=== PATIENT | male | born 1940 | race Caucasian/White ===

== ENCOUNTER 2023-02-05 15:08 | Outpatient (RCR) | payer MEDICARE, OTHER, SELFPAY | END 2023-02-05 23:59 | disposition home or self-care (01) | LOC: RST 15:08 | PROVIDERS: ATTENDING PHYSICIAN Psychiatry & Neurology Neurology; FAMILY PHYSICIAN Family Medicine | DX: R41.3 Other amnesia (principal); R47.01 Aphasia | CPT/HCPCS: 92507 ==

== ENCOUNTER 2023-03-19 15:44 | Outpatient (RCR) | payer MEDICARE, OTHER, SELFPAY | END 2023-03-19 23:59 | disposition home or self-care (01) | LOC: RST 15:44 | PROVIDERS: ATTENDING PHYSICIAN Psychiatry & Neurology Neurology; FAMILY PHYSICIAN Family Medicine | DX: R41.3 Other amnesia (principal); R47.01 Aphasia; R41.89 Other symptoms and signs involving cognitive functions and awareness | CPT/HCPCS: 92507 ==

== ENCOUNTER 2023-03-31 20:20 | Emergency (ER) | payer MEDICARE, OTHER, SELFPAY ==
[2023-03-31 20:26] VITALS: BP 149/70
[2023-03-31 20:35] LABS: Glucose - Point of Care 111 mg/dl (70-99)
--- NOTE | 2023-03-31 20:49 | ED.CVA ---
History of Present Illness
General
Chief Complaint: CVA/TIA Symptoms
Source: patient
Time Seen by Provider: 03/31/23 20:43
Onset of Stroke Symptoms
Onset of symptoms known: No
Time pt last seen normal is known: Yes
Date last time pt seen normal: 03/31/23
Time last time pt seen normal: 20:52
Travel History
Have you had any contact with someone who has COVID-19?: No
Do you have any symptoms of coronavirus? Fever > 100 degrees, chills, cough, shortness of breath, sore throat, loss of taste or smell, muscle aches, or headache?: No
History of Present Illness
History of Present Illness:
82-year-old male brought to the emergency room by his for evaluation of confusion and being off balance. 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 Patient also has a right facial droop
secondary to Mohs surgery. states that the patient had spent the afternoon outside where he did smoke a couple cigars and had a glass of bourbon. His heard him go up the steps and into his office. It sounded like he was walking in a
different way than normal but when she went to check on him in the office he was asleep. She let him sleep and eventually woke him for dinner. He seemed confused which she attributed to just waking up from his nap. However when she heard him
again coming down the steps it sounded quite abnormal. She went to check on him and felt he was unbalanced and she need to help him down the steps. He was confused and did not know how he had gotten up the stairs and said he felt away he is never
felt before. did not notice any focal weakness of the extremities.
Past History
Past History
ED Past Medical History: Arrthythmia (afib), CAD, CHF, HTN, Hypercholesterolemia, Other (RLS) and Other (R DVT, Left atrial thrombus Sep 2018)
ED Past Surgical History: Orthopedic; Negative Cardiac
Social History
Tobacco: Non-smoker
Alcohol: Occasional
Drug: None
Personal:
Living: with family
Employment: Retired
Family History
Family History: Other (Noncontributory)
Phy Exam
Physical Exam
Physical Exam:
General: Awake, Alert, Oriented X3. No acute distress.
Vitals: unremarkable
Head: Atraumatic
Eyes: Pupils equal, EOMI
Throat: Airway intact, no exudates
Neck: Trachea midline
Lungs: Clear and equal b/l
Heart: Regular rate, no murmurs
Abd: Soft, Nontender, No pulsatile mass
Neuro: Expressive aphasia (baseline) right peripheral facial droop, muscle strength equal bilaterally, cerebellar exam normal
Skin: Warm, dry, no rash
Extremities: pulses equal b/l, no edema
Course
Orders/Labs/Results
Orders:
Orders
03/31/23 20:41
Electrocardiogram (*1) Urgent
Reason for Study: Other
Other Reason for Exam: Possible Stroke
Bedside Glucose- Treatment ONCE
Cardiac Monitoring- Treatment ONCE
EKG- Treatment ONCE
IV Insert/Care/Rem.- Treatment PRN
Vital Signs As Directed
Frequency: Other
Weight As Directed
Frequency: Once
Comment: ZERO STRETCHER SCALE FOR ACCURATE WEIGHT
O2 Therapy [RESP] Urgent
Titrate/Wean O2 to maintain O2 sat greater than (%): 93
Special Instructions: MAINTAIN CONTINUOUS O2 SATS > OR = 93%
03/31/23 20:42
Alcohol Urgent
Comprehensive Metabolic Panel Urgent
PTT Urgent
Prothrombin Time Urgent
03/31/23 20:43
Add On- LAB Urgent
Tests Added?: alcohol
Complete Blood Count/With Diff Urgent
Troponin I Urgent
03/31/23 20:46
CT Head W/o Cont STROKE ALERT Urgent
Reason For Exam: confusion, slurred speech
Abnormal Lab Results
03/31/23 03/31/23 03/31/23
20:33 20:42 20:43
RBC 4.50 L 10^6/uL
(4.70-6.10)
MCV 96.4 H fL
(80.0-94.0)
MCH 33.3 H pg
(27.0-31.0)
Absolute Monos (auto) 0.9 H 10^3/uL
(0.1-0.6)
Monocytes % 9.7 H %
(1.7-9.3)
Chloride 108 H mmol/L
(98-107)
Carbon Dioxide 20 L mmol/L
(22-30)
BUN 29 H mg/dl
(9-20)
Creatinine 1.9 H mg/dL
(0.7-1.3)
Glucose 107 H mg/dl
(70-99)
POC Glucose 111 H mg/dl
(70-99)
03/31/23 20:43
03/31/23 20:42
Vital Signs
Initial and Last Documented VS:
Initial Vital Signs
Pulse Resp BP Pulse Ox
61 18 149/70 99
03/31/23 20:26 03/31/23 20:26 03/31/23 20:26 03/31/23 20:26
Last Documented Vital Signs
Temp Pulse Resp BP Pulse Ox
95.3 F L 73 17 167/86 98
03/31/23 20:44 03/31/23 22:00 03/31/23 22:00 03/31/23 22:00 03/31/23 21:45
MDM/Problems Addressed
Differential Diagnosis Includes:
CVA, metabolic encephalopathy, electrolyte abnormality
MDM/Problems Addressed:
Presentation not consistent with acute ischemic event as there is no focality. Rather patient just more off balance and confused than baseline. Patient did endorse some alcohol consumption this evening. CT of the head shows no acute
abnormalities. Labs are unremarkable save for a EtOH level of 157. Given patient's age and comorbidities I think this completely explains his presentation. Patient observed until he was able to ambulate without assistance. Patient stable for
discharge home.
Chronic conditions affecting care: Other (Aphasia)
*Radiology
Radiology exam reviewed: radiology read reviewed
*Pulse Oximetry
Patient hypoxic: no
*EKG
Interpreted by ED Provider?: Yes
Interpretation: abnormal
Heart Rate: 61
Rate: normal
Rhythm: sinus
Independence: normal axis
Interval: normal interval
QRS Pattern: normal QRS
Ischemia: no ischemia
*Critical Care Note
Total Time (30-74mins, 75-104mins- exclusive of procedures): Not Applicable
Patient Management
Social determinants of health affecting care: Strong social support
ED Attending Note
-
Portions of this chart may have been created with voice recognition software.� Occasional wrong word or��sound alike� substitutions may have occurred due to the inherent limitations of voice recognition software.
Discharge Plan
Departure
Patient Disposition: Home (Routine Discharge)
Date of Disposition: 03/31/23
Time of Disposition: 22:05
Patient with high blood pressure during this ER visit?: Yes
Condition: Good
Discharge Problem:
Alcohol intoxication
Instructions: Alcohol Intoxication ED
Prescriptions:
No Action
aspirin 81 MG tablet,delayed release (DR/EC)
81 mg PO DAILY
atorvastatin 20 MG tablet
20 mg PO QPM Qty: 30 0RF
fluticasone propionate 1 SPRAY spray,suspension
1 spray intranasal DAILY Qty: 1 0RF
metoprolol succinate 50 mg tablet extended release 24 hr
50 mg PO DAILY
spironolactone 25 mg tablet
12.5 mg PO DAILY
escitalopram oxalate 5 mg tablet
5 mg PO DAILY
Eliquis 2.5 mg tablet
2.5 mg PO BID
dapagliflozin propanediol [Farxiga] 10 mg tablet
10 mg PO DAILY
Referrals:
Dayron Saunders MD [Family Provider] -
Interventions
Interventions:
*Risk Screen - Suicide Last Done: 03/31/23 20:26
*General Assessment Last Done: 03/31/23 20:26
*Neglect/Abuse Screening Last Done: 03/31/23 20:26
ED- Fall Risk Assessment Last Done: 03/31/23 20:58
*ED COVID-19 Vaccine History Last Done: 03/31/23 20:26
*Nursing Disposition Last Done: 03/31/23 22:25
ED- Pulmonary Assessment Last Done: 03/31/23 20:58
ED- Neurological Assessment Last Done: 03/31/23 20:57
ED- Cardiac Assessment Last Done: 03/31/23 20:58
ED Swallowing Screen Last Done: 03/31/23 21:30
Discharge Date and Time
Discharge Date/Time: 03/31/23 22:25
[2023-03-31 20:50] LABS: % Eosinophils 2.2 % (0-6); % Immature Granulocytes 0.4 % (0-0.5); % Lymphocytes 27.2 % (20.5-51.1); % Monocytes 9.7 % (1.7-9.3); % Neutrophils 59.5 % (42.2-75.2); Absolute Basophils 0.1 10^3/uL (0-0.2); Absolute Eosinophils 0.2 10^3/uL (0-0.7); Absolute Lymphocytes 2.6 10^3/uL (1.2-3.4); Absolute Monocytes 0.9 10^3/uL (0.1-0.6); Absolute Neutrophils 5.6 10^3/uL (1.4-6.5); Hematocrit 43.4 % (39.0-52.0); Mean Corp Hgb Conc. 34.6 g/dL (33.0-37.0); Mean Corpuscular Hgb 33.3 pg (27.0-31.0); Mean Corpuscular Volume 96.4 fL (80.0-94.0); Mean Platelet Volume 9.4 fL (7.4-10.4); Nucleated Red Blood Cells % 0 % (-); Platelet Count 268 10^3/uL (130-400); Red Cell Dist. Width 13.1 % (11.5-14.5); White Blood Cell Count 9.4 10^3/uL (4.8-10.8)
[2023-03-31 21:00] VITALS: BP 145/70
[2023-03-31 21:01] LABS: INR 1.08; PT 13.9 Sec (11.4-14.6)
[2023-03-31 21:02] LABS: APTT 29.6 Sec (23.4-35.0)
[2023-03-31 21:04] LABS: ALT (SGPT) 11 U/L (0-50); AST (SGOT) 29 U/L (17-59); Albumin 4.1 g/dl (3.5-5.0); Alkaline Phosphatase 68 U/L (38-126); Blood Urea Nitrogen 29 mg/dl (9-20); Calcium 9.1 mg/dl (8.4-10.2); Carbon Dioxide 20 mmol/L (22-30); Chloride 108 mmol/L (98-107); Glucose 107 mg/dl (70-99); Potassium 4.7 mmol/L (3.5-5.1); Sodium 142 mmol/L (135-145); Total Bilirubin 0.6 mg/dl (0.2-1.3); Total Protein 6.6 g/dl (6.3-8.2)
[2023-03-31 21:05] LABS: Alcohol 157 mg/dl
[2023-03-31 21:14] LABS: Troponin I 0.031 ng/ml
[2023-03-31 21:15] VITALS: BP 122/68
[2023-03-31 21:30] VITALS: BP 143/71
[2023-03-31 21:45] VITALS: BP 143/74
[2023-03-31 22:00] VITALS: BP 167/86
== END 2023-03-31 22:25 | disposition home or self-care (01) ==
LOC: EMR 20:20
PROVIDERS: EMERGENCY PHYSICIAN Emergency Medicine; FAMILY PHYSICIAN Family Medicine
DX: F10.129 Alcohol abuse with intoxication, unspecified (principal); I48.91 Unspecified atrial fibrillation; I25.10 Atherosclerotic heart disease of native coronary artery without angina pectoris; I11.0 Hypertensive heart disease with heart failure; I50.9 Heart failure, unspecified; E78.00 Pure hypercholesterolemia, unspecified; G25.81 Restless legs syndrome; R47.01 Aphasia
CPT/HCPCS: 99284; 70450; 80053; 82077; 82962; 84484; 85025; 85610; 85730; 93005

== ENCOUNTER 2023-04-14 12:14 | Outpatient (RCR) | payer MEDICARE, OTHER, SELFPAY | END 2023-04-14 23:59 | disposition home or self-care (01) | LOC: RST 12:14 | PROVIDERS: ATTENDING PHYSICIAN Psychiatry & Neurology Neurology; FAMILY PHYSICIAN Family Medicine | DX: R41.3 Other amnesia (principal); R47.01 Aphasia; G31.84 Mild cognitive impairment of uncertain or unknown etiology | CPT/HCPCS: 92507 ==

== ENCOUNTER 2023-04-17 08:02 | Outpatient (RCR) | payer MEDICARE, OTHER, SELFPAY | END 2023-04-17 23:59 | disposition home or self-care (01) | LOC: RPT 08:02 | PROVIDERS: ATTENDING PHYSICIAN Orthopaedic Surgery Orthopaedic Surgery of the Spine; FAMILY PHYSICIAN Family Medicine | DX: M48.062 Spinal stenosis, lumbar region with neurogenic claudication (principal); M41.86 Other forms of scoliosis, lumbar region; Z73.6 Limitation of activities due to disability; R26.2 Difficulty in walking, not elsewhere classified; M62.81 Muscle weakness (generalized) | CPT/HCPCS: 97110; 97162 ==

== ENCOUNTER 2023-05-09 06:35 | Outpatient (RCR) | payer MEDICARE, OTHER, SELFPAY | END 2023-05-09 23:59 | disposition home or self-care (01) | LOC: RPT 06:35 | PROVIDERS: ATTENDING PHYSICIAN Orthopaedic Surgery Orthopaedic Surgery of the Spine; FAMILY PHYSICIAN Family Medicine | DX: M48.062 Spinal stenosis, lumbar region with neurogenic claudication (principal); M41.86 Other forms of scoliosis, lumbar region; Z73.6 Limitation of activities due to disability; R26.2 Difficulty in walking, not elsewhere classified; M62.81 Muscle weakness (generalized) | CPT/HCPCS: 97010; 97110 ==

== ENCOUNTER → 2023-07-16 19:28 | Outpatient (REF) | payer MEDICARE, OTHER, SELFPAY | LOC: MRI 19:28 | PROVIDERS: ATTENDING PHYSICIAN Orthopaedic Surgery; FAMILY PHYSICIAN Family Medicine | DX: M54.50 Low back pain, unspecified (principal) | CPT/HCPCS: 72148 ==

== ENCOUNTER → 2023-07-17 13:58 | Outpatient (REF) | payer MEDICARE, OTHER, SELFPAY ==
[2023-07-17 14:46] LABS: % Basophils 0.8 % (0-2); % Eosinophils 2.3 % (0-6); % Immature Granulocytes 0.6 % (0-0.5); % Lymphocytes 21.5 % (20.5-51.1); % Monocytes 9.1 % (1.7-9.3); % Neutrophils 65.7 % (42.2-75.2); Absolute Basophils 0.1 10^3/uL (0-0.2); Absolute Eosinophils 0.3 10^3/uL (0-0.7); Absolute Immature Granulocytes 0.1 10^3/uL (0-0.05); Absolute Lymphocytes 2.3 10^3/uL (1.2-3.4); Absolute Neutrophils 7.1 10^3/uL (1.4-6.5); Hemoglobin 15.9 g/dL (13.0-18.0); Mean Corp Hgb Conc. 33.8 g/dL (33.0-37.0); Mean Corpuscular Hgb 33.9 pg (27.0-31.0); Mean Corpuscular Volume 100.2 fL (80.0-94.0); Mean Platelet Volume 9.6 fL (7.4-10.4); Nucleated Red Blood Cells % 0 % (-); Platelet Count 312 10^3/uL (130-400); Red Blood Cell Count 4.69 10^6/uL (4.70-6.10); Red Cell Dist. Width 13.2 % (11.5-14.5); White Blood Cell Count 10.7 10^3/uL (4.8-10.8)
[2023-07-17 15:09] LABS: Erythrocyte Sed Rate 4 mm/hour (0-20)
[2023-07-17 15:15] LABS: NT-proBNP 5640 pg/ml
[2023-07-17 15:18] LABS: ALT (SGPT) 29 U/L (0-50); AST (SGOT) 40 U/L (17-59); Alkaline Phosphatase 66 U/L (38-126); Blood Urea Nitrogen 31 mg/dl (9-20); Calcium 9.2 mg/dl (8.4-10.2); Carbon Dioxide 22 mmol/L (22-30); Chloride 110 mmol/L (98-107); Glucose 89 mg/dl (70-99); Potassium 5.1 mmol/L (3.5-5.1); Sodium 141 mmol/L (135-145); Total Bilirubin 0.9 mg/dl (0.2-1.3); Total Protein 6.4 g/dl (6.3-8.2)
[2023-07-17 15:19] LABS: C-Reactive Protein < 5.00 mg/L (0.0-10.00)
[2023-07-17 15:36] LABS: Free T4 1.14 ng/dl (0.78-2.19); Vitamin D, 25-OH*** 52.3 ng/mL (30-80)
[2023-07-17 15:49] LABS: TSH 2.58 uIU/ml (0.47-4.68)
[2023-07-19 21:33] LABS: CTx 774 pg/mL (118-776)
[2023-07-20 08:44] LABS: ANA, IgG Reflex to HEp-2 None Detected (None Detected)
== END ==
LOC: REG 13:58
PROVIDERS: ATTENDING PHYSICIAN Internal Medicine Rheumatology; FAMILY PHYSICIAN Family Medicine
DX: M15.0 Primary generalized (osteo)arthritis (principal); M54.16 Radiculopathy, lumbar region; M81.0 Age-related osteoporosis without current pathological fracture; Z00.00 Encounter for general adult medical examination without abnormal findings; N18.32 Chronic kidney disease, stage 3b; I12.9 Hypertensive chronic kidney disease with stage 1 through stage 4 chronic kidney disease, or unspecified chronic kidney disease; I50.9 Heart failure, unspecified
CPT/HCPCS: 36415; 80053; 82306; 82523; 83880; 84439; 84443; 85025; 85652; 86038; 86140

== ENCOUNTER 2023-09-04 08:36 | Outpatient (RCR) | payer MEDICARE, OTHER, SELFPAY | END 2023-09-04 23:59 | disposition home or self-care (01) | LOC: RST 08:36 | PROVIDERS: ATTENDING PHYSICIAN Psychiatry & Neurology Neurology; FAMILY PHYSICIAN Family Medicine | DX: R47.01 Aphasia (principal) | CPT/HCPCS: 92507; 92523 ==

== ENCOUNTER 2023-09-18 09:10 | Outpatient (RCR) | payer MEDICARE, OTHER, SELFPAY | END 2023-09-18 23:59 | disposition home or self-care (01) | LOC: RST 09:10 | PROVIDERS: ATTENDING PHYSICIAN Psychiatry & Neurology Neurology; FAMILY PHYSICIAN Family Medicine | DX: R47.01 Aphasia (principal) | CPT/HCPCS: 92507 ==

== ENCOUNTER 2023-09-23 09:01 | Emergency (ER) | payer MEDICARE, OTHER, SELFPAY ==
[2023-09-23 09:06] VITALS: BP 159/99
[2023-09-23 09:10] VITALS: BMI 29.9
--- NOTE | 2023-09-23 09:23 | ED.GENMED ---
History of Present Illness
General
Chief Complaint: Musculo-Skeletal Complaint
Exam Limitations: other (memory issues )
Time Seen by Provider: 09/23/23 09:12
History of Present Illness
History of Present Illness:
Patient is an 83-year-old male brought to the ER by EMS for evaluation of back pain. Patient presents awake alert he is aware that he has a hospital but is not able to tell me which hospital. He does tell me that he is here for back pain but is
poor historian he does have a history of memory issues and cognitive impairment. present reports patient has a history of chronic back issues. He has been evaluated by Dr. Jorge Bello in the past . He also has seen Dr. Dye and they are
talking about injections but he has not had injections yet. He was in physical therapy. This morning reports patient was walking upstairs in the hallway and could not walk. He was hunched over leaning on the wall
He does take Motrin and Tylenol normally for his pain. He did a lo of walking yesterday .
Past History
Past History
ED Past Medical History: Arrthythmia (afib), CAD, CHF, HTN, Hypercholesterolemia, Other (RLS) and Other (R DVT, Left atrial thrombus Sep 2018)
ED Past Surgical History: Orthopedic; Negative Cardiac
Social History
Tobacco: Non-smoker
Alcohol: Occasional
Drug: None
Personal:
Living: with family
Employment: Retired
Family History
Family History: Other (Noncontributory)
Review of Systems
Review of Systems
Allergies reviewed?: Yes
Other source history: family
All Other Systems: ROS reviewed and negative except as documented in HPI and ROS
Constitutional: Reports no symptoms; Denies fever or fatigue
Respiratory: Reports no symptoms
Cardiac: Reports no symptoms
ABD/GI: Reports no symptoms
: Denies dysuria or incontinence
Musculoskeletal: Reports back pain (low back pain )
Skin: Reports no symptoms
Neurological: Reports no symptoms and other (Denies any lower extremity weakness)
Psychiatric: Reports no symptoms
Phy Exam
General Physical Exam
General Presentation: well appearing
General age: appears stated age
General Skin: warm and dry
General Habitus: elderly
General Mental: usual mental status (Able to answer some questions poor historian, history of cognitive impairment at baseline as per )
General Hydration: appears well hydrated
Cardiovascular Exam
Cardiovascular Exam: occasionally irregular
Pulmonary Exam
Pulmonary Exam: lungs clear and no respiratory distress
Neurological Exam
Neurological Exam: alert and other (Intact sensation bilateral lower extremities negative straight leg raise normal dorsiflexion plantarflexion)
Musculoskeletal Exam
Musculoskeletal Exam: other (Normal inspection to tubular splitting machine tender throughout the paralumbar muscles negative straight leg raise)
Skin Exam
Skin Exam: normal color and warm/dry
Psychiatric Exam
Psychiatric Exam: normal mood/affect
Course
Orders/Labs/Results
Orders:
Orders
09/23/23 10:17
Acetaminophen 1000MG/100Ml [Ofirmev] 1,000 mg in 100 ml IV ONCE
Acetaminophen IV Indication:: ED Narcotic Naive Pt-ONCE
Vital Signs
Initial and Last Documented VS:
Initial Vital Signs
BP
159/99
09/23/23 09:06
Last Documented Vital Signs
Temp Pulse Resp BP Pulse Ox
98.1 F 95 14 146/85 96
09/23/23 09:10 09/23/23 14:15 09/23/23 14:15 09/23/23 14:00 09/23/23 14:15
MDM/Problems Addressed
Differential Diagnosis Includes:
Not limited to chronic back pain muscle strain.
MDM/Problems Addressed:
MRI of lumbar spine reviewed from July 17, 2023 shows very severe discogenic degenerative disease very severe central canal stenosis at L3-L4 severe central canal stenosis at L2-L3.
Patient is an 83-year-old male with chronic back pain presents to the ER for exacerbation of chronic back pain today. Patient reports pain in the lower back no radiation no bowel or bladder patient was given IV Tylenol and monitored here. He is on
blood thinners and with history of cognitive issues and cognitive impairment I did not want to give narcotic a muscle relaxer. He did have some good results with IV Ofirmev and feels like to go home. Patient as per has an appointment with .
Hardik tomorrow at 11 am.
pt was able to ambulate here.
*Critical Care Note
Total Time (30-74mins, 75-104mins- exclusive of procedures): Not Applicable
ED Attending Note
-
Portions of this chart may have been created with voice recognition software.� Occasional wrong word or��sound alike� substitutions may have occurred due to the inherent limitations of voice recognition software.
Discharge Plan
Departure
Patient Disposition: Home (Routine Discharge)
Date of Disposition: 09/23/23
Time of Disposition: 14:48
Patient with high blood pressure during this ER visit?: Yes
Condition: Fair
Covid-19: Not Applicable
Discharge Problem:
Low back pain
Instructions: Low Back Pain (DC), BLOOD PRESSURE
Prescriptions:
No Action
aspirin 81 MG tablet,delayed release (DR/EC)
81 mg PO DAILY
atorvastatin 20 MG tablet
20 mg PO QPM Qty: 30 0RF
fluticasone propionate 1 SPRAY spray,suspension
1 spray intranasal DAILY Qty: 1 0RF
metoprolol succinate 50 mg tablet extended release 24 hr
50 mg PO DAILY
spironolactone 25 mg tablet
12.5 mg PO DAILY
escitalopram oxalate 5 mg tablet
5 mg PO DAILY
Eliquis 2.5 mg tablet
2.5 mg PO BID
dapagliflozin propanediol [Farxiga] 10 mg tablet
10 mg PO DAILY
Referrals:
Dayron Saunders MD [Family Provider] -
Farzad Dye MD [Active] -
Activity Restrictions/Additional Instructions:
Patient may take Tylenol every 4-6 hours as needed. Follow-up with back specialist tomorrow return if any worsening of symptoms.
Interventions
Interventions:
*Risk Screen - Suicide Last Done: 09/23/23 09:11
*General Assessment Last Done: 09/23/23 09:10
*Neglect/Abuse Screening Last Done: 09/23/23 09:11
ED- Fall Risk Assessment Last Done: 09/23/23 14:57
*ED COVID-19 Vaccine History Last Done: 09/23/23 09:10
*Nursing Disposition Last Done: 09/23/23 14:57
ED-Musculoskeletal Assessment Last Done: 09/23/23 09:11
Discharge Date and Time
Discharge Date/Time: 09/23/23 15:08
Print Language: [place]
[2023-09-23 10:00] VITALS: BP 142/88
[2023-09-23] MEDS: OFIRMEV 100 IV (10:24)
[2023-09-23 11:00] VITALS: BP 136/88
[2023-09-23 12:00] VITALS: BP 127/74
[2023-09-23 13:00] VITALS: BP 145/104
[2023-09-23 14:00] VITALS: BP 146/85
== END 2023-09-23 15:08 | disposition home or self-care (01) ==
LOC: EMR 09:01
PROVIDERS: EMERGENCY PHYSICIAN Emergency Medicine; FAMILY PHYSICIAN Family Medicine
DX: M54.50 Low back pain, unspecified (principal); I48.91 Unspecified atrial fibrillation; I25.10 Atherosclerotic heart disease of native coronary artery without angina pectoris; I11.0 Hypertensive heart disease with heart failure; I50.9 Heart failure, unspecified; E78.00 Pure hypercholesterolemia, unspecified; G25.81 Restless legs syndrome; Z79.01 Long term (current) use of anticoagulants
CPT/HCPCS: 99282

== ENCOUNTER 2023-10-23 08:24 | Outpatient (RCR) | payer MEDICARE, OTHER, SELFPAY | END 2023-10-23 23:59 | disposition home or self-care (01) | LOC: RST 08:24 | PROVIDERS: ATTENDING PHYSICIAN Psychiatry & Neurology Neurology; FAMILY PHYSICIAN Family Medicine | DX: R47.01 Aphasia (principal); R41.89 Other symptoms and signs involving cognitive functions and awareness | CPT/HCPCS: 92507 ==

== ENCOUNTER → 2023-11-07 15:19 | Outpatient (REF) | payer MEDICARE, OTHER, SELFPAY ==
[2023-11-07 16:06] LABS: ALT (SGPT) 14 U/L (0-50); AST (SGOT) 26 U/L (17-59); Albumin 4.1 g/dl (3.5-5.0); Alkaline Phosphatase 68 U/L (38-126); Blood Urea Nitrogen 36 mg/dl (9-20); Carbon Dioxide 21 mmol/L (22-30); Chloride 109 mmol/L (98-107); Glucose 91 mg/dl (70-99); Sodium 144 mmol/L (135-145); Total Bilirubin 0.9 mg/dl (0.2-1.3); Total Protein 6.3 g/dl (6.3-8.2); eGFR 29.17
[2023-11-08 11:15] LABS: Intact PTH 156.8 pg/ml (13.6-85.8)
== END ==
LOC: REG 15:19
PROVIDERS: ATTENDING PHYSICIAN Family Medicine
DX: I50.30 Unspecified diastolic (congestive) heart failure (principal); N18.9 Chronic kidney disease, unspecified; N18.32 Chronic kidney disease, stage 3b
CPT/HCPCS: 36415; 80053; 83970

== ENCOUNTER 2023-12-11 11:30 | Outpatient (RCR) | payer MEDICARE, OTHER, SELFPAY | END 2023-12-11 23:59 | disposition home or self-care (01) | LOC: RST 11:30 | PROVIDERS: ATTENDING PHYSICIAN Psychiatry & Neurology Neurology; FAMILY PHYSICIAN Family Medicine | DX: R47.01 Aphasia (principal) | CPT/HCPCS: 92507 ==

== ENCOUNTER 2024-01-08 15:10 | Outpatient (RCR) | payer MEDICARE, OTHER, SELFPAY | END 2024-01-08 23:59 | disposition home or self-care (01) | LOC: RST 15:10 | PROVIDERS: ATTENDING PHYSICIAN Psychiatry & Neurology Neurology; FAMILY PHYSICIAN Family Medicine | DX: R47.01 Aphasia (principal) | CPT/HCPCS: 92507 ==

== ENCOUNTER → 2024-01-13 16:09 | Outpatient (REF) | payer MEDICARE, OTHER, SELFPAY | LOC: RCS 16:09 | PROVIDERS: ATTENDING PHYSICIAN Internal Medicine Cardiovascular Disease; FAMILY PHYSICIAN Family Medicine | DX: I25.10 Atherosclerotic heart disease of native coronary artery without angina pectoris (principal); I48.19 Other persistent atrial fibrillation; I10 Essential (primary) hypertension | CPT/HCPCS: 93306 ==

== ENCOUNTER 2024-01-29 06:56 | Day surgery (SDC) | payer MEDICARE, OTHER, SELFPAY ==
[2024-01-26 13:39] VITALS: BMI 30.9
== END 2024-01-29 10:10 | disposition home or self-care (01) ==
LOC: CATH 06:56
PROVIDERS: ATTENDING PHYSICIAN Internal Medicine Cardiovascular Disease; FAMILY PHYSICIAN Family Medicine; OTHER PHYSICIAN Internal Medicine Cardiovascular Disease
DX: I48.19 Other persistent atrial fibrillation (principal); R07.89 Other chest pain; R06.02 Shortness of breath; I13.0 Hypertensive heart and chronic kidney disease with heart failure and stage 1 through stage 4 chronic kidney disease, or unspecified chronic kidney disease; N18.32 Chronic kidney disease, stage 3b; E78.5 Hyperlipidemia, unspecified; I25.10 Atherosclerotic heart disease of native coronary artery without angina pectoris; Z95.5 Presence of coronary angioplasty implant and graft; I50.9 Heart failure, unspecified; I51.3 Intracardiac thrombosis, not elsewhere classified; G47.33 Obstructive sleep apnea (adult) (pediatric); G25.81 Restless legs syndrome; G25.0 Essential tremor; Z85.828 Personal history of other malignant neoplasm of skin; G47.00 Insomnia, unspecified; F17.290 Nicotine dependence, other tobacco product, uncomplicated; Z79.01 Long term (current) use of anticoagulants; Z79.84 Long term (current) use of oral hypoglycemic drugs
CPT/HCPCS: 93312; 93320; 93325; 92960; 93005

== ENCOUNTER 2024-02-10 13:05 | Outpatient (RCR) | payer MEDICARE, OTHER, SELFPAY | END 2024-02-10 23:59 | disposition home or self-care (01) | LOC: RST 13:05 | PROVIDERS: ATTENDING PHYSICIAN Psychiatry & Neurology Neurology; FAMILY PHYSICIAN Family Medicine | DX: R47.01 Aphasia (principal) | CPT/HCPCS: 92507 ==

== ENCOUNTER → 2024-03-02 15:48 | Outpatient (REF) | payer MEDICARE, OTHER, SELFPAY ==
[2024-03-02 17:16] LABS: % Basophils 0.6 % (0-2); % Eosinophils 1.4 % (0-6); % Immature Granulocytes 0.3 % (0-0.5); % Lymphocytes 18.7 % (20.5-51.1); % Monocytes 8.7 % (1.7-9.3); % Neutrophils 70.3 % (42.2-75.2); Absolute Basophils 0.1 10^3/uL (0-0.2); Absolute Eosinophils 0.2 10^3/uL (0-0.7); Absolute Monocytes 0.9 10^3/uL (0.1-0.6); Absolute Neutrophils 7.4 10^3/uL (1.4-6.5); Hematocrit 42.1 % (39.0-52.0); Hemoglobin 13.8 g/dL (13.0-18.0); Mean Corp Hgb Conc. 32.8 g/dL (33.0-37.0); Mean Corpuscular Hgb 32.3 pg (27.0-31.0); Mean Corpuscular Volume 98.6 fL (80.0-94.0); Mean Platelet Volume 9.4 fL (7.4-10.4); Nucleated Red Blood Cells % 0 % (-); Platelet Count 262 10^3/uL (130-400); Red Blood Cell Count 4.27 10^6/uL (4.70-6.10); Red Cell Dist. Width 12.9 % (11.5-14.5); White Blood Cell Count 10.5 10^3/uL (4.8-10.8)
[2024-03-02 17:42] LABS: ALT (SGPT) < 10 U/L (0-50); AST (SGOT) 22 U/L (17-59); Albumin 3.8 g/dl (3.5-5.0); Alkaline Phosphatase 63 U/L (38-126); Blood Urea Nitrogen 31 mg/dl (9-20); Calcium 8.8 mg/dl (8.4-10.2); Carbon Dioxide 24 mmol/L (22-30); Chloride 109 mmol/L (98-107); Glucose 154 mg/dl (70-99); Potassium 4.8 mmol/L (3.5-5.1); Sodium 141 mmol/L (135-145); Total Bilirubin 0.7 mg/dl (0.2-1.3); Total Protein 6.2 g/dl (6.3-8.2); eGFR 32.71
== END ==
LOC: REG 15:48
PROVIDERS: ATTENDING PHYSICIAN Internal Medicine Cardiovascular Disease; FAMILY PHYSICIAN Family Medicine
DX: I25.10 Atherosclerotic heart disease of native coronary artery without angina pectoris (principal); I48.0 Paroxysmal atrial fibrillation; I42.8 Other cardiomyopathies; I10 Essential (primary) hypertension; I48.19 Other persistent atrial fibrillation; I35.0 Nonrheumatic aortic (valve) stenosis; I48.91 Unspecified atrial fibrillation; I50.9 Heart failure, unspecified
CPT/HCPCS: 36415; 80053; 85025

== ENCOUNTER 2024-03-05 09:01 | Day surgery (SDC) | payer MEDICARE, OTHER, SELFPAY ==
[2024-03-05] VITALS (10 sets, daily range): BP systolic 108–151; BP diastolic 68–92; BMI 27.6
[2024-03-05] MEDS: NSS 293 ML IV (10:05)
[2024-03-05] MEDS: NSS 1000 IV (13:57)
--- NOTE | 2024-03-05 18:08 | ITS.CL.PN ---
[facility] - Procedure Note
Procedure
Procedure Note:
CARDIAC CATHETERIZATION REPORT
Date of Procedure: 03/05/2024
Referring: Dr. Yasemin Torres MD
Indication: positive cardiac stress test, new cardiomyopathy
PROCEDURE(S)
1. left heart catheterization
2. coronary angiography
3. extremity angio, unilateral (right radial artery)
ACCESS: 6F right radial artery (closure: radial band)
CATHETERS
1. 6F JR4
2. 6F JL3.5
MODERATE SEDATION: 33 minutes of moderate sedation was utilized. An independent medical malpractice paralegal was present to assist with and help manage the patient's level of consciousness and physiologic status.
ULTRASOUND GUIDED VASCULAR ACCESS (right radial artery): Ultrasound was utilized for vascular access. The vessel was visualized under ultrasound and noted to be patent. An image of the vessel was stored permanently in the patient's medical record.
Under direct ultrasound guidance, vascular access was obtained using a modified Seldinger technique and a 6 Mongolian sheath was placed.
HEMODYNAMIC DATA
LV 114/10 (EDP 12) mmHg
AO 112/70 (mean 89) mmHg
CORONARY ANGIOGRAPHY
Dominance: right
LM: short, normal
LAD: Large vessel giving rise to 3 medium caliber diagonal branches. There is mild nonobstructive disease.
LCx: Large vessel giving rise to a medium caliber OM1, large caliber OM2, and large caliber LPL branch. There is mild nonobstructive disease.
RCA: Large caliber vessel giving rise to a medium caliber RPDA and a medium caliber RPL branch. There is disease in the small very distal branches of the RPDA and RPL but otherwise nonobstructive coronary artery disease.
RADIATION: dose 333 mGy; DAP 20.9 Gy*cm2; fluoroscopy time 5.7 min
CONCLUSIONS
1. no significant coronary artery disease in a right dominant system.
2. normal LV filling pressure and no aortic stenosis
RECOMMENDATIONS
1. expectant management after cardiac catheterization via right radial approach
2. aggressive primary prevention of coronary artery disease
3. workup and management of nonischemic cardiomyopathy
Copy to: Dr. Yasemin Torres MD (oenologist); Dr. Dayron Saunders MD (PCP)
Signed: Matthew Garcia MD, PhD
== END 2024-03-05 16:15 | disposition home or self-care (01) ==
LOC: CATH 09:01
PROVIDERS: ATTENDING PHYSICIAN Student in an Organized Health Care Education/Training Program; FAMILY PHYSICIAN Family Medicine; OTHER PHYSICIAN Internal Medicine Cardiovascular Disease
DX: I25.10 Atherosclerotic heart disease of native coronary artery without angina pectoris (principal); I42.8 Other cardiomyopathies; Z79.01 Long term (current) use of anticoagulants; Z79.899 Other long term (current) drug therapy; I10 Essential (primary) hypertension; I48.19 Other persistent atrial fibrillation; E78.5 Hyperlipidemia, unspecified; Z95.5 Presence of coronary angioplasty implant and graft; I12.9 Hypertensive chronic kidney disease with stage 1 through stage 4 chronic kidney disease, or unspecified chronic kidney disease; N18.32 Chronic kidney disease, stage 3b
CPT/HCPCS: 99152; 99153; 76937; 93458; C1769; C1894; Q9967

== ENCOUNTER 2024-03-12 11:09 | Outpatient (RCR) | payer MEDICARE, OTHER, SELFPAY | END 2024-03-12 23:59 | disposition home or self-care (01) | LOC: RST 11:09 | PROVIDERS: ATTENDING PHYSICIAN Psychiatry & Neurology Neurology; FAMILY PHYSICIAN Family Medicine | DX: R47.01 Aphasia (principal) | CPT/HCPCS: 92507 ==

== ENCOUNTER 2024-04-08 12:48 | Outpatient (RCR) | payer MEDICARE, OTHER, SELFPAY | END 2024-04-08 23:59 | disposition home or self-care (01) | LOC: RST 12:48 | PROVIDERS: ATTENDING PHYSICIAN Psychiatry & Neurology Neurology; FAMILY PHYSICIAN Family Medicine | DX: R47.01 Aphasia (principal) | CPT/HCPCS: 92507 ==

== ENCOUNTER 2024-04-23 13:49 | Outpatient (RCR) | payer MEDICARE, OTHER, SELFPAY | END 2024-04-23 23:59 | disposition home or self-care (01) | LOC: RST 13:49 | PROVIDERS: ATTENDING PHYSICIAN Psychiatry & Neurology Neurology; FAMILY PHYSICIAN Family Medicine | DX: R47.01 Aphasia (principal) | CPT/HCPCS: 92507 ==

== ENCOUNTER 2024-05-24 09:43 | Outpatient (RCR) | payer MEDICARE, OTHER, SELFPAY | END 2024-05-24 23:59 | disposition home or self-care (01) | LOC: RST 09:43 | PROVIDERS: ATTENDING PHYSICIAN Psychiatry & Neurology Neurology; FAMILY PHYSICIAN Family Medicine | DX: R47.01 Aphasia (principal) | CPT/HCPCS: 97550 ==

== ENCOUNTER → 2024-06-24 16:12 | Outpatient (REF) | payer MEDICARE, OTHER, SELFPAY ==
[2024-06-24 17:22] LABS: % Basophils 0.9 % (0-2); % Eosinophils 2.5 % (0-6); % Immature Granulocytes 0.3 % (0-0.5); % Lymphocytes 21.4 % (20.5-51.1); % Monocytes 8.9 % (1.7-9.3); Absolute Basophils 0.1 10^3/uL (0-0.2); Absolute Eosinophils 0.2 10^3/uL (0-0.7); Absolute Lymphocytes 1.9 10^3/uL (1.2-3.4); Absolute Monocytes 0.8 10^3/uL (0.1-0.6); Absolute Neutrophils 5.8 10^3/uL (1.4-6.5); Hematocrit 44.6 % (39.0-52.0); Hemoglobin 14.9 g/dL (13.0-18.0); Mean Corp Hgb Conc. 33.4 g/dL (33.0-37.0); Mean Corpuscular Hgb 32.8 pg (27.0-31.0); Mean Corpuscular Volume 98.2 fL (80.0-94.0); Mean Platelet Volume 9.6 fL (7.4-10.4); Nucleated Red Blood Cells % 0 % (-); Platelet Count 250 10^3/uL (130-400); Red Blood Cell Count 4.54 10^6/uL (4.70-6.10); Red Cell Dist. Width 13.2 % (11.5-14.5); White Blood Cell Count 8.7 10^3/uL (4.8-10.8)
[2024-06-24 17:30] LABS: ALT (SGPT) 11 U/L (0-50); AST (SGOT) 20 U/L (17-59); Alkaline Phosphatase 61 U/L (38-126); Blood Urea Nitrogen 33 mg/dl (9-20); Calcium 8.7 mg/dl (8.4-10.2); Carbon Dioxide 25 mmol/L (22-30); Chloride 109 mmol/L (98-107); Glucose 122 mg/dl (70-99); Potassium 4.9 mmol/L (3.5-5.1); Sodium 143 mmol/L (135-145); Total Bilirubin 0.5 mg/dl (0.2-1.3); Total Protein 6.1 g/dl (6.3-8.2); eGFR 30.85
[2024-06-24 18:01] LABS: PSA, Total - Diagnostic 0.64 ng/ml (0.0-4.0); TSH Reflex To Free T4 1.98 uIU/ml (0.47-4.68)
[2024-06-25 12:18] LABS: Glycohemoglobin (HgbA1c) 6.2 % (4.0-5.6)
== END ==
LOC: REG 16:12
PROVIDERS: ATTENDING PHYSICIAN Family Medicine; OTHER PHYSICIAN Internal Medicine; REFERRING PHYSICIAN Internal Medicine Cardiovascular Disease
DX: E78.5 Hyperlipidemia, unspecified (principal); I25.10 Atherosclerotic heart disease of native coronary artery without angina pectoris; I10 Essential (primary) hypertension; I35.0 Nonrheumatic aortic (valve) stenosis; I48.19 Other persistent atrial fibrillation; I42.8 Other cardiomyopathies; I48.0 Paroxysmal atrial fibrillation; I48.91 Unspecified atrial fibrillation; I50.9 Heart failure, unspecified; R73.03 Prediabetes; I50.33 Acute on chronic diastolic (congestive) heart failure; C61 Malignant neoplasm of prostate; R35.0 Frequency of micturition
CPT/HCPCS: 36415; 80053; 83036; 84153; 84443; 85025

== ENCOUNTER → 2024-06-30 10:51 | Outpatient (REF) | payer MEDICARE, OTHER, SELFPAY ==
[2024-06-30 13:04] LABS: HDL Cholesterol 50 mg/dl; LDL Cholesterol, Calculated 69 mg/dl; Total Cholesterol 134 mg/dl (50-199); Triglyceride 78 mg/dl (10-149); Very Low Density Lipoprotein 15 mg/dl (0-30)
== END ==
LOC: REG 10:51
PROVIDERS: ATTENDING PHYSICIAN Family Medicine
DX: I25.10 Atherosclerotic heart disease of native coronary artery without angina pectoris (principal); I10 Essential (primary) hypertension; I35.0 Nonrheumatic aortic (valve) stenosis; I48.19 Other persistent atrial fibrillation; I42.8 Other cardiomyopathies; I48.91 Unspecified atrial fibrillation; I50.9 Heart failure, unspecified; E78.5 Hyperlipidemia, unspecified
CPT/HCPCS: 36415; 80061

== ENCOUNTER 2024-09-12 14:33 | Emergency (ER) | payer MEDICARE, OTHER, SELFPAY ==
[2024-09-12 14:35] VITALS: BP 164/117
[2024-09-12 14:36] VITALS: BP 164/117
--- NOTE | 2024-09-12 15:12 | ED.GENMED ---
History of Present Illness
General
Chief Complaint: Failure to Thrive
Source: patient
Exam Limitations: none
Time Seen by Provider: 09/12/24 14:52
History of Present Illness
History of Present Illness:
84-year-old male presents via EMS from home generalized weakness getting worse over the past several days up to a week. He has a history of A-fib, anticoagulated with history of CHF. He follows with cardiology, urology. He has history of aphasia.
He denies chest pain or shortness of breath. notes that he recently started doxepin and his symptoms may have worsened after starting this medication. also admits that there was some confusion in his dose administration for the doxepin.
Past History
Past History
ED Past Medical History: Arrthythmia (afib), CAD, CHF, HTN, Hypercholesterolemia, Other (RLS) and Other (R DVT, Left atrial thrombus Sep 2018)
ED Past Surgical History: Orthopedic; Negative Cardiac
Social History
Tobacco: Non-smoker
Alcohol: Occasional
Drug: None
Personal:
Living: with family
Employment: Retired
Family History
Family History: Other (Noncontributory)
Phy Exam
Physical Exam
Physical Exam:
General: Well-appearing male no acute respiratory distress
HEENT: Normocephalic atraumatic
Heart: irregular rate and rhythm
Lungs: Clear no wheeze
Ext: no cyanosis or edema
skin: warm, no rash
Course
Orders/Labs/Results
Orders:
Orders
09/12/24 15:10
Electrocardiogram (*1) Urgent
Reason for Study: Fatigue / Weakness
EKG- Treatment ONCE
09/12/24 15:20
COVID-19 Antigen Urgent
Source: Nasal Swab
Complete Blood Count/With Diff Urgent
Comprehensive Metabolic Panel Urgent
TSH Reflex To Free T4 Urgent
Comment: ADD ON
Troponin I Urgent
09/12/24 16:22
Add On- LAB Urgent
Tests Added?: tsh reflex to free t4
Straight cath- Treatment ONCE
09/12/24 16:32
Urinalysis Reflex To Culture Urgent
Date Specimen was Collected: 09/12/24
Time Specimen was Collected: 15:10
Urine Microscopic Reflex Cult Urgent
Abnormal Lab Results
09/12/24 09/12/24
15:20 16:32
MCV 96.6 H fL
(80.0-94.0)
MCH 32.4 H pg
(27.0-31.0)
Potassium 5.2 H mmol/L
(3.5-5.1)
Chloride 113 H mmol/L
(98-107)
BUN 24 H mg/dl
(9-20)
Creatinine 1.9 H mg/dL
(0.7-1.3)
Glucose 100 H mg/dl
(70-99)
Total Protein 5.7 L g/dl
(6.3-8.2)
Urine Glucose 4+ A
(Negative)
Urine Albumin (Reflex) 1+ A
(Neg - Trace)
09/12/24 15:20
09/12/24 15:20
Vital Signs
Initial and Last Documented VS:
Initial Vital Signs
Temp Pulse Resp BP Pulse Ox
98.7 F 95 16 164/117 98
09/12/24 14:35 09/12/24 14:35 09/12/24 14:35 09/12/24 14:35 09/12/24 14:35
Last Documented Vital Signs
Temp Pulse Resp BP Pulse Ox
98.7 F 86 16 127/97 94
09/12/24 14:35 09/12/24 16:15 09/12/24 16:15 09/12/24 16:00 09/12/24 16:00
MDM/Problems Addressed
Differential Diagnosis Includes:
Patient with generalized fatigue. Differential is large we will check for electrolyte abnormality or anemia thyroid disorder, medication adverse effect versus infectious source.
Labs pending COVID test pending urinalysis pending is pending will check EKG and troponin. On exam there is no unilateral weakness to suggest acute stroke.
*Pulse Oximetry
SaO2: 98
Oxygen Mode of Delivery: Room air
Patient hypoxic: no
*Critical Care Note
Total Time (30-74mins, 75-104mins- exclusive of procedures): Not Applicable
Update Note
Update Note:
Workup here without significant finding. Urinalysis negative patient has stable kidney dysfunction. Patient has been ambulatory here. He walked to the bathroom. I reassessed the patient. He expresses desire to go home and does not want to be in
the hospital. He has an appointment with his family doctor tomorrow afternoon which I think is reasonable.
ED Attending Note
-
Portions of this chart may have been created with voice recognition software.� Occasional wrong word or��sound alike� substitutions may have occurred due to the inherent limitations of voice recognition software.
Discharge Plan
Departure
Patient Disposition: Home (Routine Discharge)
Date of Disposition: 09/12/24
Time of Disposition: 18:00
Patient with high blood pressure during this ER visit?: No
Discharge Problem:
generalized fatigue
Prescriptions:
No Action
Eliquis 2.5 mg tablet
2.5 mg PO BID
dapagliflozin propanediol [Farxiga] 10 mg tablet
10 mg PO DAILY
trazodone 50 mg tablet
50 mg PO HSPRN PRN (Reason: Isomnia)
coenzyme Q10 30 mg Capsule
30 mg PO DAILY
atorvastatin 20 MG tablet
20 mg PO DAILY
multivitamin Tablet
1 tab PO DAILY
metoprolol succinate 25 mg Capsule,Sprinkle,Er 24hr
25 mg PO DAILY
zinc 100 mg Tablet
100 mg PO DAILY
ascorbic acid (vitamin C) [Vitamin C] 1,000 mg Tablet
1,000 mg PO DAILY
vitamin B complex Tablet
1 tab PO DAILY
vitamin E 100 unit Tablet
100 unit PO DAILY
escitalopram oxalate 10 mg Tablet
10 mg PO DAILY
cholecalciferol (vitamin D3) [Vitamin D3] 50 mcg (2,000 unit) Tablet
50 mcg PO DAILY
Calcium Magnesium 500 mg calcium- 250 mg Tablet
4 tab PO DAILY
turmeric 400 mg Capsule
400 mg PO DAILY
Referrals:
Dayron Saunders MD [Family Provider, Family Practice]
Interventions
Interventions:
*Risk Screen - Suicide Last Done: 09/12/24 14:38
*General Assessment Last Done: 09/12/24 14:38
*Neglect/Abuse Screening Last Done: 09/12/24 14:38
*ED- Fall Risk Assessment Last Done: 09/12/24 14:38
*ED COVID-19 Vaccine History Last Done: 09/12/24 14:38
Discharge Date and Time
Print Language: BAHRAINI
[2024-09-12 15:29] LABS: Hematocrit 46.0 % (39.0-52.0); Hemoglobin 15.4 g/dL (13.0-18.0); Mean Corp Hgb Conc. 33.5 g/dL (33.0-37.0); Mean Corpuscular Volume 96.6 fL (80.0-94.0); Nucleated Red Blood Cells % 0 % (-); Platelet Count 224 10^3/uL (130-400); Red Cell Dist. Width 13.8 % (11.5-14.5)
[2024-09-12 15:45] LABS: COVID-19 Antigen Negative (Negative)
[2024-09-12 15:50] LABS: ALT (SGPT) 10 U/L (0-50); AST (SGOT) 22 U/L (17-59); Albumin 3.5 g/dl (3.5-5.0); Alkaline Phosphatase 54 U/L (38-126); Blood Urea Nitrogen 24 mg/dl (9-20); Calcium 8.7 mg/dl (8.4-10.2); Carbon Dioxide 22 mmol/L (22-30); Chloride 113 mmol/L (98-107); Glucose 100 mg/dl (70-99); Potassium 5.2 mmol/L (3.5-5.1); Sodium 140 mmol/L (135-145); Total Protein 5.7 g/dl (6.3-8.2); eGFR 34.57
[2024-09-12 16:00] VITALS: BP 127/97
[2024-09-12 16:03] LABS: Troponin I 0.015 ng/ml
[2024-09-12 16:39] LABS: Urine Character Clear (Clear)
[2024-09-12 16:48] LABS: Urine Red Blood Cell 0-2 /HPF (0-2); Urine Squamous Cell 0-2 /LPF (Few)
[2024-09-12 16:49] LABS: Urine White Cell 0-2 /HPF (0-5)
== END 2024-09-12 18:14 | disposition home or self-care (01) ==
LOC: EMR 14:33
PROVIDERS: Physician Assistant; EMERGENCY PHYSICIAN Emergency Medicine; FAMILY PHYSICIAN Family Medicine; OTHER PHYSICIAN Internal Medicine Cardiovascular Disease
DX: R53.1 Weakness (principal); R62.7 Adult failure to thrive; R53.83 Other fatigue; Z11.52 Encounter for screening for COVID-19; I48.91 Unspecified atrial fibrillation; I11.0 Hypertensive heart disease with heart failure; I50.9 Heart failure, unspecified; R47.01 Aphasia; I25.10 Atherosclerotic heart disease of native coronary artery without angina pectoris; E78.00 Pure hypercholesterolemia, unspecified; G25.81 Restless legs syndrome; Z79.01 Long term (current) use of anticoagulants; Z86.718 Personal history of other venous thrombosis and embolism
CPT/HCPCS: 99284; 51701; 80053; 81003; 81015; 84443; 84484; 85025; 87811; 93005

== ENCOUNTER → 2024-10-12 16:54 | Outpatient (REF) | payer MEDICARE, OTHER, SELFPAY ==
[2024-10-12 17:38] LABS: Hematocrit 44.8 % (39.0-52.0); Hemoglobin 14.7 g/dL (13.0-18.0); Mean Corp Hgb Conc. 32.8 g/dL (33.0-37.0); Mean Corpuscular Volume 97.2 fL (80.0-94.0); Nucleated Red Blood Cells % 0 % (-); Platelet Count 259 10^3/uL (130-400); Red Cell Dist. Width 13.9 % (11.5-14.5)
[2024-10-12 18:15] LABS: ALT (SGPT) 11 U/L (0-50); AST (SGOT) 23 U/L (17-59); Albumin 3.8 g/dl (3.5-5.0); Alkaline Phosphatase 63 U/L (38-126); Blood Urea Nitrogen 33 mg/dl (9-20); Calcium 8.9 mg/dl (8.4-10.2); Carbon Dioxide 22 mmol/L (22-30); Chloride 112 mmol/L (98-107); Glucose 109 mg/dl (70-99); Potassium 5.0 mmol/L (3.5-5.1); Sodium 140 mmol/L (135-145); Total Protein 6.0 g/dl (6.3-8.2); eGFR 30.66
[2024-10-13 08:54] LABS: Glycohemoglobin (HgbA1c) 6.2 % (4.0-5.6)
== END ==
LOC: REG 16:54
PROVIDERS: ATTENDING PHYSICIAN Specialist; FAMILY PHYSICIAN Family Medicine
DX: E78.5 Hyperlipidemia, unspecified (principal); I10 Essential (primary) hypertension; R73.03 Prediabetes; N18.32 Chronic kidney disease, stage 3b
CPT/HCPCS: 36415; 80053; 83036; 83970; 84100; 85025

== ENCOUNTER → 2024-10-13 09:07 | Outpatient (REF) | payer MEDICARE, OTHER, SELFPAY | LOC: REG 09:07 | PROVIDERS: ATTENDING PHYSICIAN Specialist; FAMILY PHYSICIAN Family Medicine | DX: I10 Essential (primary) hypertension (principal); E78.5 Hyperlipidemia, unspecified; I12.9 Hypertensive chronic kidney disease with stage 1 through stage 4 chronic kidney disease, or unspecified chronic kidney disease | CPT/HCPCS: 82570; 84156 ==

== ENCOUNTER 2024-11-09 13:48 | Emergency (ER) | payer MEDICARE, OTHER, SELFPAY ==
[2024-11-09 13:50] VITALS: BP 121/73
--- NOTE | 2024-11-09 14:57 | ED.GENMED ---
History of Present Illness
General
Chief Complaint: Back Pain
Time Seen by Provider: 11/09/24 14:55
History of Present Illness
History of Present Illness:
FOCUSED PAST MEDICAL HISTORY
- A-fib on Eliquis, CHF, CAD, prostate cancer
REVIEW OF OLD RECORDS
- The patient had a lumbar spine MRI 07/16/2023 that showed very severe discogenic degenerative
Note:
CHIEF COMPLAINT(S)
Back pain, difficulty walking, moderate aphasia.
HISTORY OF PRESENT ILLNESS
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 His assists in communication. He presents with progressively worsening back pain and difficulty ambulating,
initially noted after steroid injections administered over the past three to four weeks. According to his , his current back pain started after the steroid injections, and his symptoms have worsened despite the treatment. An MRI conducted last
year revealed significant pathology, and he is currently under the care of an beef cattle specialist, Dr. Lange, with a scheduled procedure in January to shave ligament pressing against his spine. The patient has had no injury but reports increased
pain severity, and he and his express difficulty with daily activities due to this pain. His current pain level is significant, impacting his ability to walk, as observed by the physician. His wifes observation notes greater difficulty with
right leg mobility. It has been three years of ongoing management for his aphasia with the [facility]; no diagnosis of Parkinsons disease has been made. A physical examination reveals tenderness upon palpation of the back. The patient has
been transported by his for evaluation, using a wheelchair.
ADDITIONAL HISTORY OBTAINED FROM SOURCES OTHER THAN THE PATIENT
The patient�s provided additional information regarding his medical history, communication challenges, and current treatment plans. She noted his aphasias onset about three years ago, his back pain is not related to a stroke, and described
difficulties with ambulation. The orthopedic group communicated with her about the need for further imaging.
EXTERNAL RECORDS REVIEWED
Prior MRI results, as viewed, show significant degenerative changes contributing to the current pain condition.
CHRONIC MEDICAL CONDITIONS SIGNIFICANTLY AFFECTING CARE
1. Primary progressive aphasia.
2. History of prostate cancer, treated 20-30 years ago with no metastatic disease reported.
SOCIAL DETERMINANTS AFFECTING HEALTH
The patients serves as his primary caregiver, assisting with communication due to moderate aphasia.
MEDICATIONS
Oral prednisone was noted to have been used, though it reportedly exacerbated symptoms.
REVIEW OF SYSTEMS
- Musculoskeletal: Significant back pain; progressive worsening of symptoms, impacting mobility.
- Neurologic: Moderate aphasia, observed bradykinesia, weakness more pronounced in the right lower extremity.
PHYSICAL EXAM
General: The patient appears generally weak and debilitated.
Skin: Warm, dry.
Head: Normocephalic, atraumatic.
Neck: Supple, trachea midline.
Eye Ears, nose, mouth and throat: Oral mucosa moist.
Cardiovascular: Normal peripheral perfusion, no edema.
Respiratory: Respirations are non-labored.
Gastrointestinal : Abdomen nondistended.
Back: Minimal midline lumbar tenderness, observed discomfort with palpation.
Musculoskeletal: Normal range of motion in upper extremities, lower extremity weakness especially on the right (4+/5 strength); normal strength in left lower extremity.
Neurological: Alert with moderate aphasia which is chronic, difficulties in communication observed, bradykinesia noted.
Psychiatric: Cooperative, appropriate mood & affect.
PROBLEM LIST
Acute:
- Severe back pain, exacerbated post-steroid injection
- Difficulty ambulating
Chronic:
- Primary progressive aphasia
- History of prostate cancer
PLAN
1. Administer a single dose of Percocet for immediate pain relief.
2. Proceed with a computed tomography scan of the lumbar spine as discussed with orthopedic specialists.
3. Coordinate with Dr. Soriano office for possible further imaging and confirm outpatient follow-up plans.
4. Encourage continued management with neurologists at the [facility] for aphasia.
DIFFERENTIAL DIAGNOSIS
The Differential Diagnosis includes, in no particular order and is not limited to:
1. Lumbar spinal stenosis
2. Degenerative joint disease
3. Lumbar disc herniation
4. Spinal compression fracture
5. Metastatic bone disease
6. Osteoporotic vertebral fracture
7. Myofascial pain syndrome
8. Peripheral neuropathy
9. Spinal muscular atrophy
10. Parkinsonism related disorder
RADIOLOGY
- CT L-spine obtained
UPDATE
-Communicated with Dr. Patel on-call for [facility] orth[facility]: 'Low back pain chronic, but worsening gait. RLE weak on exam. Was to have MILD w/ Lange in January. says your office wants a CT L-spine here. Pt is a poor historian related
to Primary Progressive Aphasia. MRI Feb showed 'very severe discogenic degenerative disease and very severe central canal stenosis' getting worse despite steroid orally and injections. Please let me know if you are aware of anything more for a
plan or any other recommendations that you have.' -
SUMMARY OF ENCOUNTER
The patient was seen in the emergency department for management of severe back pain. The patients pain was significant despite receiving a dose of Percocet (oxycodone and acetaminophen), which offered minimal relief. The physician reviewed the
lumbar spine CT imaging independently and noted significant degenerative changes but no catastrophic findings. While awaiting the official radiology report, plans for discharge were made with assurances of follow-up if critical issues arose. The
physician discussed the case with Dr. Patel from [facility] as direct communication with the primary beef cattle specialist, Dr. Lange, was not feasible at the moment.
The lower extremity motor exam is the same after CT imaging as it was earlier. thought the software test technician was too rough with him.
DISPOSITION
The patient was discharged.
ASSESSMENT
The patient is experiencing severe chronic back pain secondary to significant degenerative spinal changes.
EMERGENCY TREATMENTS ADMINISTERED
Percocet (oxycodone and acetaminophen) was administered for immediate pain relief.
MANAGEMENT OF THE PATIENTS CARE WAS DISCUSSED WITH
The beef cattle specialist, Dr. Craig from [facility], was consulted for awareness and follow-up regarding the patients condition.
PLAN
The plan includes prescribing a narcotic for pain management to provide temporary relief. If anything critical is detected in the radiology readings, the patient will be contacted. The patient is advised to follow up with their orthopedist for
long-term management.
INDEPENDENT REVIEW OF LABS AND INTERPRETATION OF TESTS
My independent interpretation of the CT scan images indicates significant degenerative changes in the spine with no acute catastrophic findings.
MEDICATION RECONCILIATION
A prescription for a narcotic pain medication will be sent to [facility] pharmacy for the patient.
MEDICAL DECISION MAKING
- Number and Complexity of Problems Addressed: Chronic conditions affecting care include primary progressive aphasia and a history of prostate cancer. Differential Diagnoses included lumbar spinal stenosis, degenerative joint disease, lumbar disc
herniation, spinal compression fracture, metastatic bone disease, osteoporotic vertebral fracture, myofascial pain syndrome, peripheral neuropathy, spinal muscular atrophy, and parkinsonism-related disorder.
- Data:
Category 1:
The physician independently interpreted CT scan images revealing significant degenerative changes without catastrophic findings. External records were reviewed, indicating severe degenerative changes from prior MRI results.
Category 2:
Information was obtained from the patients spouse, serving as an independent historian.
Category 3:
Discussion of management with Dr. Craig, beef cattle specialist for ongoing care coordination.
- Risk:
Consideration of Admission/Observation: Escalation of care including admission/observation was considered given the complexity and risk of the patients presenting complaint and underlying comorbidities. However, ultimately I feel the patient is safe
for outpatient management with close follow-up. Reasoning: Work-up reassuring, does not reveal any acute life/organ-threatening processes, patients symptoms well controlled upon reevaluation, reexamination is reassuring, vitals are stable, patient
agreeable with discharge, reliable for follow-up.
Care significantly affected by Social Determinants of Health: The patient�s serves as his primary caregiver, assisting with communication due to moderate aphasia.
Of note, the patient and patient's refused to wait for CT results. I personally reviewed the images which shows significant degenerative findings. Radiology report still pending but family did not want a wait any longer.
DIAGNOSIS
Severe chronic back pain secondary to degenerative changes - M54.5.
Primary Progressive Aphasia - F80.2.
CT was ultimately read by radiology as progression of degenerative disease.
Past History
Past History
ED Past Medical History: Arrthythmia (afib), CAD, CHF, HTN, Hypercholesterolemia, Other (RLS) and Other (R DVT, Left atrial thrombus Sep 2018)
ED Past Surgical History: Orthopedic; Negative Cardiac
Social History
Tobacco: Non-smoker
Alcohol: Occasional
Drug: None
Personal:
Living: with family
Employment: Retired
Family History
Family History: Other (Noncontributory)
Phy Exam
Physical Exam
Physical Exam:
See HPI
Course
Orders/Labs/Results
Orders:
Orders
11/09/24 15:13
CT Lumbar Spine W/o Iv Contras Urgent
Comment:
Reason For Exam: worsening severe pain sent by ortho
Oxycodone/Acetaminophen [Percocet 5/325] 1 tablet PO NOW STA
Vital Signs
Initial and Last Documented VS:
Initial Vital Signs
Temp Pulse Resp BP Pulse Ox
36.7 C 81 18 121/73 97
11/09/24 13:50 11/09/24 13:50 11/09/24 13:50 11/09/24 13:50 11/09/24 13:50
Last Documented Vital Signs
Temp Pulse Resp BP Pulse Ox
36.7 C 81 18 121/73 97
11/09/24 13:50 11/09/24 13:50 11/09/24 13:50 11/09/24 13:50 11/09/24 14:59
*Pulse Oximetry
SaO2: 97
Patient hypoxic: no
*Critical Care Note
Total Time (30-74mins, 75-104mins- exclusive of procedures): Not Applicable
ED Attending Note
-
Portions of this chart may have been created with voice recognition software.� Occasional wrong word or��sound alike� substitutions may have occurred due to the inherent limitations of voice recognition software.
Discharge Plan
Departure
Patient Disposition: Home (Routine Discharge)
Date of Disposition: 11/09/24
Time of Disposition: 17:30
Patient with high blood pressure during this ER visit?: Yes
Discharge Problem:
Low back pain
Instructions: Low Back Pain (DC), BLOOD PRESSURE
Prescriptions:
New
oxycodone-acetaminophen [Percocet] 5-325 mg tablet
1 tab PO Q8H PRN (Reason: Pain) Qty: 14 0RF
No Action
Eliquis 2.5 mg tablet
2.5 mg PO BID
dapagliflozin propanediol [Farxiga] 10 mg tablet
10 mg PO DAILY
trazodone 50 mg tablet
50 mg PO HSPRN PRN (Reason: Isomnia)
coenzyme Q10 30 mg Capsule
30 mg PO DAILY
atorvastatin 20 MG tablet
20 mg PO DAILY
multivitamin Tablet
1 tab PO DAILY
metoprolol succinate 25 mg Capsule,Sprinkle,Er 24hr
25 mg PO DAILY
zinc 100 mg Tablet
100 mg PO DAILY
ascorbic acid (vitamin C) [Vitamin C] 1,000 mg Tablet
1,000 mg PO DAILY
vitamin B complex Tablet
1 tab PO DAILY
vitamin E 100 unit Tablet
100 unit PO DAILY
escitalopram oxalate 10 mg Tablet
10 mg PO DAILY
cholecalciferol (vitamin D3) [Vitamin D3] 50 mcg (2,000 unit) Tablet
50 mcg PO DAILY
Calcium Magnesium 500 mg calcium- 250 mg Tablet
4 tab PO DAILY
turmeric 400 mg Capsule
400 mg PO DAILY
Referrals:
Dayron Saunders MD [Family Provider, Family Practice]
Activity Restrictions/Additional Instructions:
CT imaging of the lumbar spine has not been read yet. I sent a prescription for Percocet to your pharmacy. If you take the Percocet, I recommend taking senna like MiraLAX to prevent constipation. Return here if worse or other concerns. I
notified Dr. Patel; follow-up with Dr. Lange.
Interventions
Interventions:
*Risk Screen - Suicide Last Done: 11/09/24 13:51
*General Assessment Last Done: 11/09/24 15:33
*Neglect/Abuse Screening Last Done: 11/09/24 13:51
*ED- Fall Risk Assessment Last Done: 11/09/24 13:52
*ED COVID-19 Vaccine History Last Done: 11/09/24 15:33
ED-Musculoskeletal Assessment Last Done: 11/09/24 15:33
Discharge Date and Time
Print Language: WOLOF
[2024-11-09] MEDS: PERCOCET 5/325 1 TABLET PO (15:30)
== END 2024-11-09 17:40 | disposition home or self-care (01) ==
LOC: EMR 13:48
PROVIDERS: EMERGENCY PHYSICIAN Emergency Medicine; FAMILY PHYSICIAN Family Medicine
DX: M54.50 Low back pain, unspecified (principal); M47.816 Spondylosis without myelopathy or radiculopathy, lumbar region; M48.061 Spinal stenosis, lumbar region without neurogenic claudication; G31.01 Pick's disease; F02.80 Dementia in other diseases classified elsewhere, unspecified severity, without behavioral disturbance, psychotic disturbance, mood disturbance, and anxiety; I25.10 Atherosclerotic heart disease of native coronary artery without angina pectoris; I48.91 Unspecified atrial fibrillation; I11.0 Hypertensive heart disease with heart failure; I50.9 Heart failure, unspecified; E78.00 Pure hypercholesterolemia, unspecified; G25.81 Restless legs syndrome; Z79.01 Long term (current) use of anticoagulants; Z86.718 Personal history of other venous thrombosis and embolism; Z85.46 Personal history of malignant neoplasm of prostate
CPT/HCPCS: 99284; 72131

== ENCOUNTER 2024-12-06 12:34 | Emergency (ER) | payer MEDICARE, OTHER, SELFPAY ==
[2024-12-06 12:49] VITALS: BP 156/100
--- NOTE | 2024-12-06 13:30 | ED.GENMED ---
History of Present Illness
General
Chief Complaint: Fall
Source: patient
Exam Limitations: none
Time Seen by Provider: 12/06/24 13:12
Nursing documentation reviewed up to this point in time: agreed with
History of Present Illness
History of Present Illness:
84-year-old male presenting to the emergency department today with concerns of right sided back discomfort after he slipped down 2 steps hitting his back on wooden stairs. Ongoing pain over the past 2 days denies significant shortness of breath
chest pain nausea vomiting numbness weakness. No changes in bowel movements or urination. Is on Eliquis. Adamantly denies any head trauma or neck pain.
Past History
Past History
ED Past Medical History: Arrthythmia (afib), CAD, CHF, HTN, Hypercholesterolemia, Other (RLS) and Other (R DVT, Left atrial thrombus Sep 2018)
ED Past Surgical History: Orthopedic; Negative Cardiac
Social History
Tobacco: Non-smoker
Alcohol: Occasional
Drug: None
Personal:
Living: with family
Employment: Retired
Family History
Family History: Other (Noncontributory)
Review of Systems
Review of Systems
Allergies reviewed?: Yes
All Other Systems: ROS reviewed and negative except as documented in HPI and ROS
Phy Exam
Physical Exam
Physical Exam:
GENERAL: Alert , in no apparent distress
EYE: pupils equal and reactive
NECK: Supple, no significant adenopathy.
ENT: o/p clr, mmm.
CARDIAC: Regular rate and rhythm .
LUNGS: Clear breath sounds bilaterally, no acute respiratory distress, no wheezes/rales/rhonchi
ABDOMEN: Soft, without focal tenderness, no r/g, no cvat
NEUROLOGICAL: Alert and oriented, no focal neuro deficits
SKIN: Warm and dry, skin intact.
MUSCULOSKELETAL: Vague discomfort throughout the right upper back and scapular area without overlying skin changes. No involvement of the flank or abdomen. No edema, well perfused.
PSYCH: Normal and appropriate interaction.
Course
Orders/Labs/Results
Orders:
Orders
12/06/24 13:21
CR Ribs-right 3 Vw W/pa Chest* Urgent
Comment:
Reason For Exam: posterior rib pain after fall
Lumbar Spine, 2 or 3 View [CR Lumbar Spine 2 Or 3 Views] Urgent
Comment:
Reason For Exam: lbp after fall
Vital Signs
Initial and Last Documented VS:
Initial Vital Signs
Temp Pulse Resp BP Pulse Ox
98.2 F 86 20 156/100 97
12/06/24 12:49 12/06/24 12:49 12/06/24 12:49 12/06/24 12:49 12/06/24 12:49
Last Documented Vital Signs
Temp Pulse Resp BP Pulse Ox
98.2 F 86 20 156/100 97
12/06/24 12:49 12/06/24 12:49 12/06/24 12:49 12/06/24 12:49 12/06/24 13:33
MDM/Problems Addressed
MDM/Problems Addressed:
84-year-old male presenting to the emergency department today with concerns of right back pain after a fall down 2 steps. Here x-rays without evidence of acute injury. Vital signs normal. Patient no distress stable for discharge. Return
precautions given.
*Pulse Oximetry
SaO2: 97
Oxygen Mode of Delivery: Room air
Patient hypoxic: no (97)
*Critical Care Note
Total Time (30-74mins, 75-104mins- exclusive of procedures): Not Applicable
ED Attending Note
-
Portions of this chart may have been created with voice recognition software.� Occasional wrong word or��sound alike� substitutions may have occurred due to the inherent limitations of voice recognition software.
Discharge Plan
Departure
Patient Disposition: Home (Routine Discharge)
Date of Disposition: 12/06/24
Time of Disposition: 16:38
Patient with high blood pressure during this ER visit?: No
Condition: Good
Covid-19: Not Applicable
Discharge Problem:
Rib injury
Instructions: Rib fracture or bruised rib - ED (DC)
Prescriptions:
No Action
Eliquis 2.5 mg tablet
2.5 mg PO BID
dapagliflozin propanediol [Farxiga] 10 mg tablet
10 mg PO DAILY
trazodone 50 mg tablet
50 mg PO HSPRN PRN (Reason: Isomnia)
coenzyme Q10 30 mg Capsule
30 mg PO DAILY
atorvastatin 20 MG tablet
20 mg PO DAILY
multivitamin Tablet
1 tab PO DAILY
metoprolol succinate 25 mg Capsule,Sprinkle,Er 24hr
25 mg PO DAILY
zinc 100 mg Tablet
100 mg PO DAILY
ascorbic acid (vitamin C) [Vitamin C] 1,000 mg Tablet
1,000 mg PO DAILY
vitamin B complex Tablet
1 tab PO DAILY
vitamin E 100 unit Tablet
100 unit PO DAILY
escitalopram oxalate 10 mg Tablet
10 mg PO DAILY
cholecalciferol (vitamin D3) [Vitamin D3] 50 mcg (2,000 unit) Tablet
50 mcg PO DAILY
Calcium Magnesium 500 mg calcium- 250 mg Tablet
4 tab PO DAILY
turmeric 400 mg Capsule
400 mg PO DAILY
oxycodone-acetaminophen [Percocet] 5-325 mg tablet
1 tab PO Q8H PRN (Reason: Pain) Qty: 14 0RF
Referrals:
Dayron Saunders MD [Family Provider, Family Practice]
Activity Restrictions/Additional Instructions:
You came to the emergency department today with concerns of a back injury after a fall. Here your rib series chest x-ray and imaging of your vertebrae did not show any acute abnormalities. This likely is a rib contusion or soft tissue injury.
Please rest and use topical pain relievers to help with symptoms. Return for any worsening, new or concerning symptoms
Interventions
Interventions:
*Risk Screen - Suicide Last Done: 12/06/24 14:20
*General Assessment Last Done: 12/06/24 12:49
*Neglect/Abuse Screening Last Done: 12/06/24 14:20
*ED- Fall Risk Assessment Last Done: 12/06/24 14:20
*ED COVID-19 Vaccine History Last Done: 12/06/24 14:20
*ED Influenza Vaccine History Last Done: 12/06/24 14:20
ED-Musculoskeletal Assessment Last Done: 12/06/24 14:20
ED- Neurological Assessment Last Done: 12/06/24 14:20
ED-Skin Assessment Last Done: 12/06/24 14:20
Discharge Date and Time
Print Language: NORWEGIAN
== END 2024-12-06 17:01 | disposition home or self-care (01) ==
LOC: EMR 12:34
PROVIDERS: EMERGENCY PHYSICIAN Student in an Organized Health Care Education/Training Program; FAMILY PHYSICIAN Family Medicine
DX: S29.9XXA Unspecified injury of thorax, initial encounter (principal); W10.9XXA Fall (on) (from) unspecified stairs and steps, initial encounter; E78.00 Pure hypercholesterolemia, unspecified; I11.0 Hypertensive heart disease with heart failure; I50.9 Heart failure, unspecified; I25.10 Atherosclerotic heart disease of native coronary artery without angina pectoris; I48.91 Unspecified atrial fibrillation; Z79.01 Long term (current) use of anticoagulants
CPT/HCPCS: 99284; 71101; 72100

== ENCOUNTER 2025-02-10 12:48 | Inpatient (IN) | payer MEDICARE, OTHER, SELFPAY ==
[2025-02-10] VITALS (26 sets, daily range): BP systolic 102–132; BP diastolic 59–87; BMI 28.0
--- NOTE | 2025-02-10 09:16 | EDRN ---
Pt a complete lift w/ 3 assist to get onto stretcher. Pt has bilateral sciatica and had bilateral lower back injections on Friday and fell onto L side injuring his L knee that day. pt is unable to ambulate and a full lift.
[2025-02-10 09:46] LABS: Hematocrit 35.7 % (39.0-52.0); Hemoglobin 11.8 g/dL (13.0-18.0); Mean Corp Hgb Conc. 33.1 g/dL (33.0-37.0); Mean Corpuscular Volume 99.4 fL (80.0-94.0); Nucleated Red Blood Cells % 0 % (-); Platelet Count 292 10^3/uL (130-400); Red Cell Dist. Width 13.6 % (11.5-14.5)
--- NOTE | 2025-02-10 09:58 | ED.MUSCINJ ---
HPI-Injury
<Laina Hyde MARKET RESEARCH SPECIALIST - Last Filed: 02/10/25 18:12>
General
Chief Complaint: Musculo-Skeletal Complaint
Source: patient and family
Exam Limitations: none
Time Seen by Provider: 02/10/25 09:43
Nursing documentation reviewed up to this point in time: agreed with
History of Present Illness-Injury
Initial Injury comments:
84-year-old male history on Eliquis, cognitive impairment, CHF, CAD, HTN, HLD, prostatectomy 2006, right knee replacement
84-year-old male with a history of dementia and atrial fibrillation on apixaban. Two weeks ago, the patient underwent a minimally invasive procedure on the spine to relieve ligament pressure, performed by Dr. Lange at orthopedic clinic.
Post-procedure, the patients pain initially improved but then worsened, leading to cortisone injections in both knees two days ago. On the day of the injection, the patient went home and fell, landing on his left side. Since the fall, the patient
has experienced increased pain and swelling in the left knee, decreased mobility, and new cognitive impairment and agitation, hallucinations which his caregiver attributes to medication changes (given Percocet for pain). He has been using a walker
but is currently unable to ambulate efficiently.
There has been no fever, pt denies CP, SOB, abdominal pain.
Past History
<Laina Hyde MARKET RESEARCH SPECIALIST - Last Filed: 02/10/25 18:12>
Past History
ED Past Medical History: Arrthythmia (afib), CAD, CHF, HTN, Hypercholesterolemia, Other (RLS) and Other (R DVT, Left atrial thrombus Sep 2018)
ED Past Surgical History: Orthopedic; Negative Cardiac
Social History
Tobacco: Non-smoker
Alcohol: Occasional
Drug: None
Personal:
Living: with family
Employment: Retired
Family History
Family History: Other (Noncontributory)
Review of Systems
<Laina V. Day, MARKET RESEARCH SPECIALIST - Last Filed: 02/10/25 18:12>
Review of Systems
Allergies reviewed?: Yes
All Other Systems: ROS reviewed and negative except as documented in HPI and ROS
Phy Exam
<Laina Hyde, MARKET RESEARCH SPECIALIST - Last Filed: 02/10/25 18:12>
Physical Exam
Physical Exam:
GENERAL: No acute distress. Somnolent, easily arouses, oriented name only.
CONSTITUTIONAL: Afebrile.
EYES: clear, conjunctivae normal
ENMT: moist mucus membranes, Pharynx nl
RESPIRATORY: Regular respirations, nonlabored, shallow breaths, lungs clear.
CARDIOVASCULAR: Irregular rate, afib with RVR on monitor, no murmurs, no rubs.
GI: Soft, nontender, normal BS
MUSCULOSKELETAL: No spinal bony tenderness. Moves RLE well. Left knee with swelling, tenderness, unable to flex due to pain. Distal N/V intact. Neg pelvic rock. Well perfused.No edema.
SKIN: Warm, dry, pale
PSYCH: Depressed mood and affect. Well kept, interactive.
NEUROLOGIC: Awake, alert and oriented to name only. Speech clear. Aphasic at baseline. No focal neurological deficits
Injury Course
<Laina Hyde, MARKET RESEARCH SPECIALIST - Last Filed: 02/10/25 18:12>
Orders/Labs/Results
Orders:
Orders
02/10/25 09:19
Electrocardiogram (*1) Urgent
Reason for Study: Chest Pain
Cardiac Monitoring- Treatment ONCE
02/10/25 09:20
EKG- Treatment ONCE
02/10/25 09:29
Complete Blood Count/With Diff Urgent
Comprehensive Metabolic Panel Urgent
Ferritin Urgent
Comment: ADDON
Folate Urgent
Comment: ADDON
Iron Urgent
Comment: ADDON
NT-proBNP Urgent
Comment: ADDON
Reticulocyte Count Urgent
Comment: ADD ON
TSH Urgent
Comment: ADD ON
Total Iron Binding Urgent
Comment: ADDON
Vitamin B12 Urgent
Comment: ZAYNABON FOL
02/10/25 Lunch
Regular
At Your Request: Full Participation
02/10/25 10:08
Knee, Left 4 or More Views [CR Knee - Left 4 Or More View*] Urgent
Comment:
Reason For Exam: pain, swelling after fall
02/10/25 10:09
Urinalysis Reflex To Culture Urgent
02/10/25 10:33
0.9% Sodium Chloride 1000 ml [Nss] 1,000 ml IV BOLUS
02/10/25 10:44
CR Chest Portable - 1 View Urgent
Comment:
Reason For Exam: high CO2, lethargy, recent fall
Reason Study Needs to be Portable: Unable to Transport
02/10/25 11:55
Add On- LAB Urgent
Tests Added?: BNP
02/10/25 12:12
Add On- LAB Routine
Tests Added?: iron, ferritin, TIBC, B12, folate, retic
02/10/25 12:16
Diltiazem HCl [Cardizem] 10 mg IV NOW STA
02/10/25 12:17
Diltiazem 125 mg/125 ml Nss [Cardizem] 125 mg in 125 ml IV NOW
Initial dose in mg/hr, then titrate:: 5
Titrate to keep:: Heart rate 80-100 bpm
Titrate by mg/hr:: 5 mg/hr
Frequency of titrations (minutes):: 15
Maximum dose in mg/hr:: 15
02/10/25 12:37
Admit/Transfer Patient As Directed
Co-Sign Provider:
Level of Care: Inpatient admission
Assign to:: IVU
Physician / Group: Karolina
Diagnosis: Rapid Atrial Fib, MISTY on CKD, left knee hemarthrosis
Reason for Hospitalization: Rate control, Ortho consult, PT/OT
Expected length of stay greater than two midnights?: Yes
ELOS- Estimated Length of Stay in days: 3
I certify the patient meets the requirements for IP care: Yes
PRN Pain Medication Management As Directed
May give lesser potent ordered pain med per pt: Yes
preference::
Protocol:: Medication orders for pain may be administered in a
manner that supports deferring to patient preference
when the pt is:
- Requesting an ordered lesser potent pain medication.
Least to most potent pain medications are defined
as: acetaminophen < NSAID < tramadol < opioids
(morphine, oxycodone, hydromorphone).
- Requesting a lesser dose of the same medication IF
ORDERED.
- Requesting a less intrusive route of administration
if both routes are prescribed by the provider (PO <
IV).
02/10/25 12:39
Code Status As Directed
Resuscitation Status: Full Code
02/10/25 12:40
Body Fluid Cell Count Urgent
What is the Body Fluid: joint
Date Specimen was Collected: 02/10/25
Time Specimen was Collected: 12:38
Comment: with DIFF
Body Fluid Crystals Urgent
What is the Body Fluid: joint
Date Specimen was Collected: 02/10/25
Time Specimen was Collected: 12:38
Fluid Culture with Gram Stain Urgent
ALBERTO Source: Joint Fluid
Specimen Description:
Date Specimen was Collected: 02/10/25
Time Specimen was Collected: 12:38
02/10/25 15:56
CARDIOLOGY CONSULT Routine
Consulting Provider: Mike Fam
Was physician already notified: Yes
ORTHOPEDIC CONSULT Routine
Consulting Provider: Cecil Orr
Was physician already notified: Yes
Activity As Directed
Activity Level: With Assistance
Sequential Compression Device [Pneumatic Compression Sleeves] As Directed
Type: Knee high
Ot Eval And Treat Routine
Pt Eval And Treat Routine
Activity Level: With Assistance
DX Deep Vein Thrombosis Video Routine
02/10/25 16:00
Acetaminophen [Tylenol] 650 mg PO Q6HPRN PRN
Sterile Water For Inj [Sterile Water For Injection 1000 ml] 1,000 ml Sodium Bicarbonate 150 meq IV 80 mls/hr
02/10/25 17:00
Metoprolol Xl [Toprol Xl] 50 mg PO DAILY
02/10/25 20:00
Apixaban [Eliquis] 2.5 mg PO BID
02/11/25 06:00
Complete Blood Count/With Diff IN AM
Comprehensive Metabolic Panel IN AM
02/11/25 08:00
Atorvastatin [Lipitor] 20 mg PO DAILY
Dapagliflozin [Farxiga] 10 mg PO DAILY
Escitalopram Oxalate [Lexapro] 5 mg PO DAILY
02/12/25 06:00
Comprehensive Metabolic Panel IN AM
02/13/25 06:00
Comprehensive Metabolic Panel IN AM
02/13/25 11:00
DC Protocol for Telemetry ONCE
Abnormal Lab Results
02/10/25
09:29
WBC 16.7 H 10^3/uL
(4.8-10.8)
RBC 3.59 L 10^6/uL
(4.70-6.10)
Hgb 11.8 L g/dL
(13.0-18.0)
Hct 35.7 L %
(39.0-52.0)
MCV 99.4 H fL
(80.0-94.0)
MCH 32.9 H pg
(27.0-31.0)
Abs Immat Gran (auto) 0.1 H 10^3/uL
(0-0.05)
Absolute Neuts (auto) 13.0 H 10^3/uL
(1.4-6.5)
Absolute Monos (auto) 2.4 H 10^3/uL
(0.1-0.6)
Immature Gran % 0.7 H %
(0-0.5)
Neutrophils % 77.9 H %
(42.2-75.2)
Lymphocytes % 6.9 L %
(20.5-51.1)
Monocytes % 14.2 H %
(1.7-9.3)
Potassium 5.2 H mmol/L
(3.5-5.1)
Chloride 108 H mmol/L
(98-107)
Carbon Dioxide 14 L* mmol/L
(22-30)
BUN 37 H mg/dl
(9-20)
Creatinine 2.5 H mg/dL
(0.7-1.3)
Glucose 155 H mg/dl
(70-99)
Iron 27 L ug/dl
(49-181)
TIBC 234 L ug/dl
(261-462)
% Saturation 11 L %
(20-50)
Total Bilirubin 1.6 H mg/dl
(0.2-1.3)
Total Protein 6.2 L g/dl
(6.3-8.2)
Folate > 20.0 H ng/ml
(2.76-20)
02/10/25 09:29
02/10/25 09:29
Humblelt;Ventura Saucedo, DO - Last Filed: 02/10/25 12:16>
Orders/Labs/Results
Orders:
Orders
02/10/25 09:19
Electrocardiogram (*1) Urgent
Reason for Study: Chest Pain
Cardiac Monitoring- Treatment ONCE
02/10/25 09:20
EKG- Treatment ONCE
12/25/25 09:29
Complete Blood Count/With Diff Urgent
Comprehensive Metabolic Panel Urgent
Ferritin Urgent
Comment: ADDON
Folate Urgent
Comment: ADDON
Iron Urgent
Comment: ADDON
NT-proBNP Urgent
Comment: ADDON
Reticulocyte Count Urgent
Comment: ADD ON
TSH Urgent
Comment: ADD ON
Total Iron Binding Urgent
Comment: ADDON
Vitamin B12 Urgent
Comment: ADDON FOL
02/10/25 Lunch
Regular
At Your Request: Full Participation
02/10/25 10:08
Knee, Left 4 or More Views [CR Knee - Left 4 Or More View*] Urgent
Comment:
Reason For Exam: pain, swelling after fall
02/10/25 10:09
Urinalysis Reflex To Culture Urgent
02/10/25 10:33
0.9% Sodium Chloride 1000 ml [Nss] 1,000 ml IV BOLUS
02/10/25 10:44
CR Chest Portable - 1 View Urgent
Comment:
Reason For Exam: high CO2, lethargy, recent fall
Reason Study Needs to be Portable: Unable to Transport
02/10/25 11:55
Add On- LAB Urgent
Tests Added?: BNP
02/10/25 12:12
Add On- LAB Routine
Tests Added?: iron, ferritin, TIBC, B12, folate, retic
02/10/25 12:16
Diltiazem HCl [Cardizem] 10 mg IV NOW STA
02/10/25 12:17
Diltiazem 125 mg/125 ml Nss [Cardizem] 125 mg in 125 ml IV NOW
Initial dose in mg/hr, then titrate:: 5
Titrate to keep:: Heart rate 80-100 bpm
Titrate by mg/hr:: 5 mg/hr
Frequency of titrations (minutes):: 15
Maximum dose in mg/hr:: 15
02/10/25 12:37
Admit/Transfer Patient As Directed
Co-Sign Provider:
Level of Care: Inpatient admission
Assign to:: IVU
Physician / Group: Karolina
Diagnosis: Rapid Atrial Fib, MISTY on CKD, left knee hemarthrosis
Reason for Hospitalization: Rate control, Ortho consult, PT/OT
Expected length of stay greater than two midnights?: Yes
ELOS- Estimated Length of Stay in days: 3
I certify the patient meets the requirements for IP care: Yes
PRN Pain Medication Management As Directed
May give lesser potent ordered pain med per pt: Yes
preference::
Protocol:: Medication orders for pain may be administered in a
manner that supports deferring to patient preference
when the pt is:
- Requesting an ordered lesser potent pain medication.
Least to most potent pain medications are defined
as: acetaminophen < NSAID < tramadol < opioids
(morphine, oxycodone, hydromorphone).
- Requesting a lesser dose of the same medication IF
ORDERED.
- Requesting a less intrusive route of administration
if both routes are prescribed by the provider (PO <
IV).
02/10/25 12:39
Code Status As Directed
Resuscitation Status: Full Code
02/10/25 12:40
Body Fluid Cell Count Urgent
What is the Body Fluid: joint
Date Specimen was Collected: 02/10/25
Time Specimen was Collected: 12:38
Comment: with DIFF
Body Fluid Crystals Urgent
What is the Body Fluid: joint
Date Specimen was Collected: 02/10/25
Time Specimen was Collected: 12:38
Fluid Culture with Gram Stain Urgent
ALBERTO Source: Joint Fluid
Specimen Description:
Date Specimen was Collected: 02/10/25
Time Specimen was Collected: 12:38
02/10/25 15:56
CARDIOLOGY CONSULT Routine
Consulting Provider: Mike Fam
Was physician already notified: Yes
ORTHOPEDIC CONSULT Routine
Consulting Provider: Cecil Orr
Was physician already notified: Yes
Activity As Directed
Activity Level: With Assistance
Sequential Compression Device [Pneumatic Compression Sleeves] As Directed
Type: Knee high
Ot Eval And Treat Routine
Pt Eval And Treat Routine
Activity Level: With Assistance
DX Deep Vein Thrombosis Video Routine
02/10/25 16:00
Acetaminophen [Tylenol] 650 mg PO Q6HPRN PRN
Sterile Water For Inj [Sterile Water For Injection 1000 ml] 1,000 ml Sodium Bicarbonate 150 meq IV 80 mls/hr
02/10/25 17:00
Metoprolol Xl [Toprol Xl] 50 mg PO DAILY
02/10/25 20:00
Apixaban [Eliquis] 2.5 mg PO BID
02/11/25 06:00
Complete Blood Count/With Diff IN AM
Comprehensive Metabolic Panel IN AM
02/11/25 08:00
Atorvastatin [Lipitor] 20 mg PO DAILY
Dapagliflozin [Farxiga] 10 mg PO DAILY
Escitalopram Oxalate [Lexapro] 5 mg PO DAILY
02/12/25 06:00
Comprehensive Metabolic Panel IN AM
02/13/25 06:00
Comprehensive Metabolic Panel IN AM
02/13/25 11:00
DC Protocol for Telemetry ONCE
Abnormal Lab Results
02/10/25
09:29
WBC 16.7 H 10^3/uL
(4.8-10.8)
RBC 3.59 L 10^6/uL
(4.70-6.10)
Hgb 11.8 L g/dL
(13.0-18.0)
Hct 35.7 L %
(39.0-52.0)
MCV 99.4 H fL
(80.0-94.0)
MCH 32.9 H pg
(27.0-31.0)
Abs Immat Gran (auto) 0.1 H 10^3/uL
(0-0.05)
Absolute Neuts (auto) 13.0 H 10^3/uL
(1.4-6.5)
Absolute Monos (auto) 2.4 H 10^3/uL
(0.1-0.6)
Immature Gran % 0.7 H %
(0-0.5)
Neutrophils % 77.9 H %
(42.2-75.2)
Lymphocytes % 6.9 L %
(20.5-51.1)
Monocytes % 14.2 H %
(1.7-9.3)
Potassium 5.2 H mmol/L
(3.5-5.1)
Chloride 108 H mmol/L
(98-107)
Carbon Dioxide 14 L* mmol/L
(22-30)
BUN 37 H mg/dl
(9-20)
Creatinine 2.5 H mg/dL
(0.7-1.3)
Glucose 155 H mg/dl
(70-99)
Iron 27 L ug/dl
(49-181)
TIBC 234 L ug/dl
(261-462)
% Saturation 11 L %
(20-50)
Total Bilirubin 1.6 H mg/dl
(0.2-1.3)
Total Protein 6.2 L g/dl
(6.3-8.2)
Folate > 20.0 H ng/ml
(2.76-20)
02/10/25 09:29
02/10/25 09:29
Procedures
<Laina V. Day, MARKET RESEARCH SPECIALIST - Last Filed: 02/10/25 18:12>
Incision/Drainage/Joint Aspiration
Left Lateral Knee:
Anethesia: 1% Lidocaine with Epi
Preparation: cleaned with alcohol wipe
Type of procedure: aspiration
Nature of site: other (traumatic effusion)
How much fluid was obtained?: number in mls (65)
Fluid description: serosanguinous
Treatment: bandaid applied
<Laina Hyde, MARKET RESEARCH SPECIALIST - Last Filed: 02/10/25 18:12>
MDM/Problems Addressed
Differential Diagnosis Includes:
dehydration, CKD,
MDM/Problems Addressed:
84-year-old male history on Eliquis, cognitive impairment, CHF, CAD, HTN, HLD, prostatectomy 2006, CKD 3, right knee replacement
84-year-old male with a history of dementia and atrial fibrillation on apixaban. Two weeks ago, the patient underwent a minimally invasive procedure on the spine to relieve ligament pressure, performed by Dr. Lange at orthopedic clinic.
Post-procedure, the patients pain initially improved but then worsened, leading to cortisone injections in both knees two days ago. On the day of the injection, the patient went home and fell, landing on his left side. Since the fall, the patient
has experienced increased pain and swelling in the left knee, decreased mobility, and new cognitive impairment and agitation, hallucinations which his caregiver attributes to medication changes (given Percocet for pain). He has been using a walker
but is currently unable to ambulate efficiently. Las time he ambulated well was 4 days ago per
There has been no fever, pt denies CP, SOB, abdominal pain.
EKG a fib w RVR HR 137 (IVFs ordered)
CBC: WBC 16.7 Hgb 11.8 (from his baseline of 14-15.9) Was 14.7 10/12/24
CMP:Carbon dioxide 14 ( has sleep apnea and refuses CPAP, has poor breathing effort, could be from CKD and dehydration, trauma, IVFs ordered.
BUN/creatinine 37/2.5 (baseline)
Anion gap 13
CXR: portable: NAD
11:50 a.m.
Plan: Admit: Elderly male with low bicarb, , leukocytosis, L knee effusion, ambulatory dysfunction
Discussed with Dr. Saucedo and who agree
Hospitalist notified of admission
<Laina Hyde, MARKET RESEARCH SPECIALIST - Last Filed: 02/10/25 18:12>
*Pulse Oximetry
SaO2: 92
Oxygen Mode of Delivery: Room air
Patient hypoxic: no
*Critical Care Note
Total Time (30-74mins, 75-104mins- exclusive of procedures): Not Applicable
ED Attending Note
<Laina Hyde, MARKET RESEARCH SPECIALIST - Last Filed: 02/10/25 18:12>
-
Portions of this chart may have been created with voice recognition software.� Occasional wrong word or��sound alike� substitutions may have occurred due to the inherent limitations of voice recognition software.
<Ventura Saucedo, DO - Last Filed: 02/10/25 12:16>
ED Attending Note
Patient seen and examined by attending physician: Yes
I performed the substantive portion of visit, reviewed & personally made and approve the management plan that is documented in note by myself or VERO.: Yes
ED Attending Note:
Seen with MARKET RESEARCH SPECIALIST examined independently 84-year-old male AF anticoagulated presents with fatigue he had a fall scant effusion on his left knee rapid A-fib could be primarily pain mediated, versus dehydration will start saline hydration consideration for
Cardizem for rate control, ultimately I do not think is compelled to go home 80s somewhat immobilized, he is elderly, he is anticoagulated already fallen once he is tachycardic has a large effusion
Discharge Plan
Departure
Patient Disposition: Admit
Date of Disposition: 02/10/25
Time of Disposition: 11:55
Admit to: Telemetry
Presentation/result/management discussed w/ accepting MD/DO: Hospitalist
Condition: Fair
Discharge Problem:
Fall, Injury of knee, left, Effusion of left knee, Ambulatory dysfunction, Atrial fibrillation with RVR
Interventions
Interventions:
*General Assessment Last Done: 02/10/25 09:30
*Neglect/Abuse Screening Last Done: 02/10/25 09:30
*ED COVID-19 Vaccine History Last Done: 02/10/25 09:30
*ED Influenza Vaccine History Last Done: 02/10/25 09:30
[facility] Fall Risk Assessment Tool Last Done: 02/10/25 09:30
*Risk Screen - Suicide (C-SSRS) Last Done: 02/10/25 09:01
*Nursing Disposition Last Done: 02/10/25 15:55
ED-Musculoskeletal Assessment Last Done: 02/10/25 09:30
Discharge Date and Time
Discharge Date/Time: 02/10/25 15:55
[2025-02-10 10:29] LABS: ALT (SGPT) 12 U/L (0-50); AST (SGOT) 27 U/L (17-59); Albumin 3.7 g/dl (3.5-5.0); Alkaline Phosphatase 66 U/L (38-126); Blood Urea Nitrogen 37 mg/dl (9-20); Calcium 8.7 mg/dl (8.4-10.2); Carbon Dioxide 14 mmol/L (22-30); Chloride 108 mmol/L (98-107); Estimated Creatinine Clearance 26 ml/min; Glucose 155 mg/dl (70-99); Potassium 5.2 mmol/L (3.5-5.1); Sodium 135 mmol/L (135-145); Total Protein 6.2 g/dl (6.3-8.2); eGFR 24.87
[2025-02-10] MEDS: NSS 1000 IV (11:05)
--- NOTE | 2025-02-10 11:28 | EDRN ---
Need a urine spec w/ Purewyck placed.
--- NOTE | 2025-02-10 12:31 | EDRN ---
Dr. Turcios in room w/ pt at this time.
[2025-02-10] MEDS: CARDIZEM 125 IV ×2 (12:32→23:18)
[2025-02-10] MEDS: CARDIZEM 10 MG IV (12:32)
--- NOTE | 2025-02-10 12:37 | EDCM ---
Chart reviewed and met with pt, his and son bedside in ED. Lives with in [address] with basement.
Independent in ADLs, personal care and ambulation at baseline, normally uses cane but has been using RW since fall 2 days ago.
PMH includes Dementia, CHF, CAD, HTN, HLD, R TKR, Afib, Prostatectomy
Confirms prescription coverage.
Follows with Palliative Care, no hx HH or SNF
PCP: Dayron Saunders
Pharmacy: [facility]
Anticipate discharge home, CM will continue to follow for all discharge planning needs.
--- NOTE | 2025-02-10 12:47 | HPS.HSE ---
Family Physician
-
Family Physician: Dayron Saunders
Chief Complaint
-
Fall, gait dysfunction, left knee pain
History of Present Illness
84-year-old male accompanied by his and son with complaints of a fall 2 days ago sustaining left knee trauma, gait dysfunction for few weeks.
At baseline was using a cane then progressed to a walker and now cannot walk at all. Gait dysfunction worsened after recent minimally invasive spinal surgery on January 26. This was done by [facility] orthopedics, Dr. Lange.
Went back to orthopedics February 08 for cortisone injections of trigger points in his lower back. Has had lumbar radicular symptoms mostly down the right leg for the past few days.
Patient himself is a very poor historian given underlying dementia.
All information gathered by speaking with family.
Family states he is under palliative care at home.
Medical History
Past Medical History
Past Medical History: Reports Other
Additional Past Medical History:
Frontotemporal dementia
DM2
Prostate cancer
Mild CAD
Essential hypertension
Lumbar radiculopathy
hyperlipidemia
Mild aortic stenosis
Chronic heart failure midrange EF
RLS
Persistent atrial fibrillation
CKD 3B
SHAISTA
Left atrial thrombus
History of bilateral DVT
Past Surgical History: Reports Appendectomy and Orthopedic
Social History
Tobacco: Non-smoker
Alcohol: Occasional
Drug: None
Personal:
Living: With Family
Employment: Not Employed
Family History
Family History: Not pertinent
Allergies / Home Medications
Allergies reflects when Allergies were last updated in [facility].
Home Medications with original date entered in [facility]
Allergy/Medication List:
Allergies
Allergy/AdvReac Type Severity Reaction Status Date / Time
No Known Allergies Allergy Verified 02/10/25 09:00
Home Medications
apixaban 2.5 mg tablet (Eliquis) 2.5 mg PO BID 03/31/23
dapagliflozin propanediol 10 mg tablet (Farxiga) 10 mg PO DAILY 03/31/23
atorvastatin 20 mg tablet 20 mg PO DAILY 01/23/24
coenzyme Q10 30 mg capsule 30 mg PO DAILY 01/23/24
trazodone 50 mg tablet 50 mg PO HSPRN PRN Isomnia 01/23/24
metoprolol succinate 25 mg capsule sprinkle, ext. release 24 hr 25 mg PO DAILY 01/26/24
multivitamin 1 tab PO DAILY 01/26/24
ascorbic acid (vitamin C) 1,000 mg tablet (Vitamin C) 1,000 mg PO DAILY 03/04/24
calcium 500 mg (carb,gluconate)-magnesium 250 mg (gluc,oxide) tablet (Calcium Magnesium) 4 tab PO DAILY 03/04/24
cholecalciferol (vitamin D3) 50 mcg (2,000 unit) tablet (Vitamin D3) 50 mcg PO DAILY 03/04/24
escitalopram oxalate 10 mg tablet 10 mg PO DAILY 03/04/24
turmeric 400 mg capsule 400 mg PO DAILY 03/04/24
vitamin B complex 1 tab PO DAILY 03/04/24
vitamin E 100 unit tablet 100 unit PO DAILY 03/04/24
zinc 100 mg tablet 100 mg PO DAILY 03/04/24
oxycodone-acetaminophen 5 mg-325 mg tablet (Percocet) 1 tab PO Q8H PRN Pain #14 tabs 11/09/24
Review of Systems
-
Unable to obtain full review of systems at this time due to: Dementia
History Source: Patient and Family
A 12 point ROS was completed and negative except as noted: Yes
Musculoskeletal: Reports Other (Left knee pain and swelling)
Physical Exam
Vital Signs
Vital Signs
Temp Pulse Resp BP Pulse Ox
98.4 F 114 23 120/81 96
02/10/25 09:01 02/10/25 12:32 02/10/25 12:00 02/10/25 12:32 02/10/25 12:15
Physical Exam
General: Well Developed, Well Nourished, No Apparent Distress and Comfortable
HEENT: NormoCephalic, Anicteric and Moist mucous membranes
Respiratory: Clear
Cardiac: S1/S2 and Regular Rhythm
GI: Soft, Non Tender and Non Distended
Genito-urinary: Deferred by me
Musculoskeletal: No Clubbing, No Cyanosis and No Edema
Skin: Warm and Dry
Neuro: Awake, Alert and Nonfocal/grossly intact
Hematologic/Lymphatic: No Lymphadenopathy
Psych: Calm
Laboratory Results
-
02/10/25 09:29
02/10/25 09:29
Laboratory Results
Total Bilirubin 1.6 mg/dl (0.2-1.3) H 02/10/25 09:29
AST 27 U/L (17-59) 02/10/25 09:29
ALT 12 U/L (0-50) 02/10/25 09:29
Alkaline Phosphatase 66 U/L (38-126) 02/10/25 09:29
Impression/Plan
-
Rapid atrial fibrillation -admit to telemetry. Resume metoprolol. Consult cardiology. Cardizem IV initiated in the emergency room.
Continue Eliquis.
Last TSH 1.7, 09/12/2024.
High risk for stroke given [id number] score of 7.
MISTY on CKD 3B -creatinine up to 2.5, baseline appears to be around 2.0. Suspect due to volume depletion. IV fluids, recheck labs in the morning.
Check urinalysis.
Hyperkalemia -potassium 5.2. Suspect due to MISTY, CKD. Give a dose of Lokelma. Recheck labs in the morning.
Elevated anion gap metabolic acidosis -bicarbonate 14, suspect related to worsening renal disease.
Bicarbonate IV infusion initiated.
Progressive gait dysfunction -worsening over the past few weeks. Will consult orthopedics for opinion on whether it is related to his known spinal disease.
Previous CT of the lumbar spine done in October showed multilevel degenerative disc disease. Greatest and severe at L2/L3. Grade 1 anterolisthesis of L5 on S1.
Previous lumbar spine MRI June 2023 showed very severe discogenic degenerative disease, very severe central canal stenosis, severe left neural foraminal narrowing at L4/L5.
Left knee trauma -fell 2 days ago. Sustained injury with hemarthrosis noted on arthrocentesis today.
Acute anemia -macrocytic. Hemoglobin 11.8, previous hemoglobins in 14 range. No obvious bleeding, other than possible left knee trauma and hemarthrosis in the setting of anticoagulation. Monitor for now.
Would not stop Eliquis given high stroke risk.
Check anemia labs.
Chronic heart failure midrange EF -stable. Not on chronic diuretics.
Chest x-ray (1-view) shows no acute disease. Stable mild cardiomegaly.
Hyperlipidemia -atorvastatin.
Frontotemporal dementia
RLS
History of left atrial thrombus
History of bilateral DVT
History of prostate cancer
History of expressive aphasia
SHAISTA
Full code - to bring in living will, she believes he might be DNR. Wants to keep full code for now.
Updated family at the bedside.
[2025-02-10 13:22] LABS: Reticulocyte Count 1.6 % (0.4-2.8)
--- NOTE | 2025-02-10 13:46 | EDRN ---
Pt is admitted to TEL w/ titratable cardizem. Leslee charge entry RN has texted Erika RN nursing complaint evaluation supervisor on titratable cardizem infusions and admit status.
[2025-02-10] MEDS: LOKELMA 10 GRAM PO (13:54)
--- NOTE | 2025-02-10 13:58 | EDRN ---
Pt placed on bedpan smooth 5 minutes ago and has not gone. Will remove bedpan.
[2025-02-10 14:06] LABS: Body Fluid Second Tech SS
[2025-02-10 14:07] LABS: Iron 27 ug/dl (49-181); Total Iron Binding Capacity 234 ug/dl (261-462)
--- NOTE | 2025-02-10 14:11 | EDRN ---
Bed assignment changed to IVU admit post TT to Dr. Turcios that diltiazem order is for titration.
[2025-02-10 14:29] LABS: TSH 2.89 uIU/ml (0.47-4.68)
--- NOTE | 2025-02-10 14:50 | CON.CAR ---
Consultation
Consultation Request
Date/Time Consultation Requested: 02/10/2025
Reason for Consultation: Atrial fibrillation with rapid ventricle response
Medical History
-
Chief Complaint: Left knee pain
History of Present Illness:
84-year-old gentleman with history of persistent atrial fibrillation, HTN, DM 2, HF midrange EF, mild CAD, prostate cancer, HPL, CKD, history of left atrial thrombus, history of bilateral DVTs, SHAISTA who presented to the ER with his and son after
sustaining a fall 2 days ago. Patient had injured his left knee and is in significant pain. Patient's left knee has been increasing in size and he is not able to bend or walk on it. Patient has recently undergone back surgery by Dr. Lange at [place]
[facility] orth[facility] and has received steroid injections to the spine on February 08 at the trigger points of his lower back. His lumbar radicular symptoms have improved but since the fall his knee has been excruciatingly painful. Today he presented
in the ER with significant ongoing pain.
In the ER patient was noted to have large left knee joint effusion. Status post drain with arthrocentesis of 75 cc. It was transudative fluid with tinged with blood.
He was also noted to be in atrial fibrillation with rapid ventricular response. He was started on diltiazem drip. With his hemarthrosis, patient's Eliquis was held.
Cardiology was consulted for further evaluation and management of his arrhythmia and stroke prevention.
ELIAS/DC cardioversion on 01/29/2024.
[id number] score is 7
Left heart cath 03/05/2024
1. no significant coronary artery disease in a right dominant system.
2. normal LV filling pressure and no aortic stenosis
ELIAS 01/29/2024
Normal LV size with mildly reduced systolic function.
Global diffuse hypokinesis. LVEF is approximately 40%.
Normal right ventricular size and function.
No thrombus detected in the left atrial appendage.
No significant valve abnormalities.
Compared to TTE from January 13, 2024, no significant change.
PMHx
1. Persistent atrial fibrillation, status post ELIAS-guided
cardioversion x3; pharmacological therapy with Metoprolol
Succinate, oral anticoagulation with Eliquis.
2. Hypertension.
3. Hyperlipidemia.
4. Coronary artery disease, status post PCI with proximal LAD
stent 2009.
5. Congestive heart failure, mildly reduced ejection fraction.
6. Left atrial appendage thrombus and nonocclusive right
posterior tibial thrombus, 09/2018, treated with Eliquis.
7. Obstructive sleep apnea, noncompliant with CPAP.
8. Chronic kidney disease stage 3B.
9. Primary progressive aphasia, followed by Neurology.
10. Restless leg syndrome.
11. Benign essential tremor.
12. Multilevel degenerative disc disease with radiculopathy.
13. Lumbar stenosis.
14. Osteoarthritis.
15. Skin cancer, status post Mohs.
16. Insomnia.
17. Obesity, BMI 30.8.
18. Infrequent tobacco abuse.
SURGICAL HISTORY:
1. ELIAS-guided cardioversion x2.
2. PCI of proximal LAD.
3. Cardiac catheterization.
4. Right knee surgery x4.
5. Appendectomy.
6. Left eye surgery.
7. Mohs surgery.
8. Multiple epidural steroid injections.
9. Multiple colonoscopies.
SOCIAL HISTORY: The patient lives in a two-story home with a basement. He currently resides with his . He reports no prior cigarette smoking history. He does, however, occasionally smoke a cigar. He notes, on average, drinking one glass of wine
every other day.
Past Medical History
Past Medical History: Arrhythmias (Persistent atrial fibrillation), CAD, CHF and HTN
Social History
Tobacco: Non-Smoker
Alcohol: Occasional
Drug: None
Personal:
Living: With Family
Family History
Family History: Reviewed & Not Pertinent
Allergies / Home Medications
Allergy/AdvReac Type Severity Reaction Status Date / Time
No Known Allergies Allergy Verified 02/10/25 09:00
�Medication �Instructions �Recorded �Confirmed �Type
apixaban 2.5 mg tablet (Eliquis) 2.5 mg PO BID 03/31/23 02/10/25 History
dapagliflozin propanediol 10 mg 10 mg PO DAILY 03/31/23 02/10/25 History
tablet (Farxiga)
atorvastatin 20 mg tablet 20 mg PO HS 01/23/24 02/10/25 History
coenzyme Q10 30 mg capsule 30 mg PO DAILY 01/23/24 02/10/25 History
multivitamin 1 tab PO DAILY 01/26/24 02/10/25 History
ascorbic acid (vitamin C) 1,000 mg 1,000 mg PO DAILY 03/04/24 02/10/25 History
tablet (Vitamin C)
calcium 500 mg 4 tab PO DAILY 03/04/24 02/10/25 History
(carb,gluconate)-magnesium 250 mg
(gluc,oxide) tablet (Calcium
Magnesium)
cholecalciferol (vitamin D3) 50 50 mcg PO DAILY 03/04/24 02/10/25 History
mcg (2,000 unit) tablet (Vitamin
D3)
escitalopram oxalate 10 mg tablet 10 mg PO DAILY 03/04/24 02/10/25 History
turmeric 400 mg capsule 400 mg PO DAILY 03/04/24 02/10/25 History
vitamin B complex 1 tab PO DAILY 03/04/24 02/10/25 History
zinc 100 mg tablet 100 mg PO DAILY 03/04/24 02/10/25 History
acetaminophen 500 mg tablet 1,000 mg PO Q8HPRN PRN mild pain 02/10/25 02/10/25 History
(Tylenol Extra Strength)
acetaminophen 650 mg 1,300 mg PO HSPRN PRN mild pain 02/10/25 02/10/25 History
tablet,extended release (Tylenol
Arthritis Pain)
bupropion HCl 150 mg 24 hr tablet, 300 mg PO DAILY 02/10/25 02/10/25 History
extended release
docusate sodium 100 mg capsule 100 mg PO DAILY PRN constipation 02/10/25 02/10/25 History
(Colace)
metoprolol succinate 50 mg 50 mg PO DAILY 02/10/25 02/10/25 History
tablet,extended release 24 hr
oxycodone-acetaminophen 5 mg-325 1 tab PO .SEE BELOW PRN mild 02/10/25 02/10/25 History
mg tablet (Percocet) pain
Review of Systems
-
All other systems: Negative unless noted
Physical Exam
Vital Signs
Temp Pulse Resp BP Pulse Ox
98.4 F 90 24 103/67 98
02/10/25 09:01 02/10/25 14:30 02/10/25 14:30 02/10/25 14:30 02/10/25 14:15
Lab Results
02/10/25 09:29
02/10/25 09:29
Quz-L-Cajpmuivgld Pept 78604 pg/ml 02/10/25 09:29
Physical Exam
General: Well Developed, Well Nourished and Other (Confused and forgetful.)
HEENT: Normocephalic and Anicteric
Respiratory: Clear, Rhonchi and Non Labored Respirations
Cardiac: S1/S2, Irregular Rhythm and Murmur
GI: Soft, Non Tender and Normal Bowel Sounds
Musculoskeletal: No Clubbing, No Cyanosis and No Edema
Skin: Warm and Dry
Psych: Confused
Impression / Plan
-
84-year-old gentleman with history of persistent atrial fibrillation, mild coronary artery disease with PCI to LAD 2008, mildly reduced LVEF, severe dementia, CKD 3B with mild worsening, hyperkalemia, anion gap metabolic acidosis, status post fall
with left knee hemarthrosis status post arthrocentesis with 75 cc of hemorrhagic fluid.
Atrial fibrillation
- Persistent A-fib with RVR
- Diltiazem drip is started.
- Currently at Dilt 10 mg/h with adequate rate control
- Compliant with Eliquis
- History of left atrial thrombus. Last ELIAS in January 2024 was clear
- Eliquis is on hold due to hemarthrosis
- Will likely resume Eliquis once the risk of bleeding is low.
- Repeat echo in the morning
Hemarthrosis
- Traumatic in nature
- Status post arthrocentesis
- Treatment as per primary and orthopedics
Heart failure
- Appears euvolemic at this time.
- With worsening CKD and metabolic acidosis, acceptable to start bicarb drip -management as per primary team.
- Watch for any fluid overload.
Data Reviewed
-
EKG: Tracing Personally Visualized and interpreted
Radiology: Report Reviewed by me
Labs: Labs Reviewed by me
Old Records: Reviewed
[2025-02-10 15:04] LABS: Folate > 20.0 ng/ml (2.76-20); Vitamin B12 480 pg/ml (239-931)
[2025-02-10 15:05] LABS: Ferritin 172.0 ng/ml (17.9-464.0)
--- NOTE | 2025-02-10 15:26 | EDRN ---
Report called to Chela in IVU at this time.
--- NOTE | 2025-02-10 15:34 | EDRN ---
Pt's synovial fluid from his knee was too visous for glucose per lab and Diego Hyde CHIEF ENTERPRISE ARCHITECT was informed.
[2025-02-10] MEDS: SODIUM BICARBONATE 1150 MEQ IV (18:29)
[2025-02-10] MEDS: TOPROL XL 50 MG PO (18:33)
--- NOTE | 2025-02-10 19:29 | PTCARENOTE ---
Received pt from ER into 2254. Pt is AAO x1-2 RAMOS and follows commands expressive aphasia. Bicarb gtt and Cardizem gtt infusing Afib on the monitor rates 80-90's BP stable. Pt and family updated poc. purewick in place . Call reyes within reach bed
alarm in use.
--- NOTE | 2025-02-10 20:00 | PTCARENOTE ---
Resumed care of pt laying in bed, AAOx1. Pt restless, confused, reaching in air attempting to grab something. Significant tremor noted. Pt with expressive aphasia at baseline. Pt able to follow commands, say yes/no appropriately. Slow speech, but
clear. Pt able to move all extremities. Left posterior thigh/ knee ecchymosis noted. Left knee bandaid in place. Pt denies complaints of pain at this time. HR in the 80's-90' in Afib with PVC's on the montior. Cardizem gtt infusing @10mg/hr. Bicarb
gtt infusing @80ml/hr. Pure wick in place draining dark adrianna urine. Son at bedside. Bed alarm in place. pt positioned per comfort. call reyes in reach. Will continue to monitor.
[2025-02-10] MEDS: ELIQUIS 2.5 MG PO (20:04)
[2025-02-10 20:18] LABS: Urine Character Clear (Clear)
[2025-02-10 20:36] LABS: Urine Urothelial Cell 0-2 /LPF (FEW)
[2025-02-10] MEDS: PERCOCET 5/325 1 TABLET PO (21:30)
[2025-02-10] MEDS: VALIUM INJECTION 2 MG IV (23:16)
--- NOTE | 2025-02-10 23:43 | PTCARENOTE ---
Pt extremely restless. at bedside attempting to help pt without success. PRN pain medication administered without response. pt continues to pull at things, moving legs and arms nonstop. Enrique CHRISTIANSON notified, orders obtained, see APR. Rectal temp
100.4. Bladder scanned for 149ml. Pt repositioned for comfort. remains at bedside. Will continue to monitor.
[2025-02-11] VITALS (15 sets, daily range): BP systolic 94–141; BP diastolic 31–104; PULSE 81; BMI 28.5
[2025-02-11 04:44] LABS: Hematocrit 29.6 % (39.0-52.0); Hemoglobin 9.9 g/dL (13.0-18.0); Mean Corp Hgb Conc. 33.4 g/dL (33.0-37.0); Mean Corpuscular Volume 100.3 fL (80.0-94.0); Nucleated Red Blood Cells % 0 % (-); Platelet Count 246 10^3/uL (130-400); Red Cell Dist. Width 13.5 % (11.5-14.5)
[2025-02-11 05:11] LABS: ALT (SGPT) 11 U/L (0-50); AST (SGOT) 31 U/L (17-59); Albumin 3.1 g/dl (3.5-5.0); Alkaline Phosphatase 61 U/L (38-126); Blood Urea Nitrogen 43 mg/dl (9-20); Calcium 8.2 mg/dl (8.4-10.2); Carbon Dioxide 18 mmol/L (22-30); Chloride 109 mmol/L (98-107); Estimated Creatinine Clearance 28 ml/min; Glucose 119 mg/dl (70-99); Potassium 4.2 mmol/L (3.5-5.1); Sodium 137 mmol/L (135-145); Total Protein 5.5 g/dl (6.3-8.2); eGFR 27.49
--- NOTE | 2025-02-11 06:20 | CON.ORTHO ---
Addendum entered and electronically signed by Cecil Orr MD 02/11/25 14:26:
I evaluated the patient at bedside and reviewed clinical information including the admission and aspiration labs. Patient reports previous bleeding after sustaining a fall on the left knee. He presented to the emergency department with bilateral
leg pain which felt consistent with sciatica that has been improving. He is on blood thinners and underwent left knee aspiration in the emergency department for hemarthrosis. The patient reports today his knee pain has improved significantly. He
has better range of motion and was able to walk down the hallway with his nurse without pain. He denies subjective fevers. No recent known infection.
On exam, there is a mild effusion. The patient has no micromotion pain with knee range of motion. He is able to straight leg raise. There is no surrounding erythema with mild warmth. I reviewed the x-rays which show left knee osteoarthritis
without signs of displaced fracture. I reviewed his serum labs which showed downtrending white count.
We discussed his aspirate results which could be consistent with infection. Given his overall clinical improvement and improved pain and function, we discussed the option of observation pending cultures. We discussed other possible etiologies for
his knee pain and swelling including aggravation of arthritis from trauma, hemarthrosis, pseudogout given recent stress from the lumbar spine. We discussed the option of surgical I&D. The patient and his wish to proceed with observation
pending cultures. If he continues to improve, he may follow-up as an outpatient with me if there is concern about continued pain or ambulatory dysfunction. If the cultures come back positive then would recommend surgical I&D. All questions were
answered.
Original Note:
Consultation
-
Date/Time Consultation Requested: Feb 10
Date/Time Consultation Performed: Feb 10
Requesting Provider: Karolina
Performing Provider: Adryan Orr
Reason for Consultation: Left knee pain/swelling
Consultation - Orthopedics
History
History of Present Illness:
84 y/o male with PMH of persistent AF (on eliquis), fontotemporal dementia, DM2, Prostate cancer, Mild CAD, Essential hypertension, Lumbar radiculopathy, hyperlipidemia, Mild aortic stenosis, Chronic heart failure midrange EF, RLS, CKD 3B, SHAISTA, Left
atrial thrombus, history of bilateral DVT, who presented to the [facility] ED yesterday with his and son, complaining of ambulatory dysfunction, with a fall 2 days ago preceding and/or resulting in left leg pain. He has been dealing with low back
and radicular symptoms, and underwent a MILD procedure on his L-spine on [address] Lange. reports increased pain and radicular symptoms since then, although some mild improvement initially. He was seen back in the office by my
colleague, Samantha Burgess PA-C, on 08 February 2025 and provided trigger point injections. He was also given Percocet, which family believes may be contributing to some cognitive impairment. X-rays revealed mild-moderate left knee OA. He was also
found to be in YARIEL (on eliquis), and has been admitted to telemetry. In the ED it was noted that he had a moderate to large effusion and arthrocentesis of 65 mL of fluid was aspirated from the knee and sent to the lab. At this point GS without
organisms, Cx pending, but 53,740 WBC with 97.2 PMNs were noted. No crystals. No history of gout or RA. Slightly elevated WBC at 14.2. Afeb this AM. given his left knee effusion and trauma with synovial fluid analysis we have been requested in
consultation
Past Medical History
Frontotemporal dementia
DM2
Prostate cancer
Mild CAD
Essential hypertension
Lumbar radiculopathy
hyperlipidemia
Mild aortic stenosis
Chronic heart failure midrange EF
RLS
Persistent atrial fibrillation
CKD 3B
SHAISTA
Left atrial thrombus
History of bilateral DVT
Past Surgical History:
Appendectomy
Orthopedic
Social History:
Tobacco: Non-smoker
Alcohol: Occasional
Drug: None
Personal:
Living: With Family
Employment: Not Employed
Family History:
Not pertinent
ROS:
12 point negative except for those mentioned in the HPI
Allergies / Home Medications
Allergy/AdvReac Type Severity Reaction Status Date / Time
No Known Allergies Allergy Verified 02/10/25 09:00
�Medication �Instructions �Recorded
apixaban 2.5 mg tablet (Eliquis) 2.5 mg PO BID 03/31/23
dapagliflozin propanediol 10 mg 10 mg PO DAILY 03/31/23
tablet (Farxiga)
atorvastatin 20 mg tablet 20 mg PO HS 01/23/24
coenzyme Q10 30 mg capsule 30 mg PO DAILY 01/23/24
multivitamin 1 tab PO DAILY 01/26/24
ascorbic acid (vitamin C) 1,000 mg 1,000 mg PO DAILY 03/04/24
tablet (Vitamin C)
calcium 500 mg 4 tab PO DAILY 03/04/24
(carb,gluconate)-magnesium 250 mg
(gluc,oxide) tablet (Calcium
Magnesium)
cholecalciferol (vitamin D3) 50 50 mcg PO DAILY 03/04/24
mcg (2,000 unit) tablet (Vitamin
D3)
escitalopram oxalate 10 mg tablet 10 mg PO DAILY 03/04/24
turmeric 400 mg capsule 400 mg PO DAILY 03/04/24
vitamin B complex 1 tab PO DAILY 03/04/24
zinc 100 mg tablet 100 mg PO DAILY 03/04/24
acetaminophen 500 mg tablet 1,000 mg PO Q8HPRN PRN mild pain 02/10/25
(Tylenol Extra Strength)
acetaminophen 650 mg 1,300 mg PO HSPRN PRN mild pain 02/10/25
tablet,extended release (Tylenol
Arthritis Pain)
bupropion HCl 150 mg 24 hr tablet, 300 mg PO DAILY 02/10/25
extended release
docusate sodium 100 mg capsule 100 mg PO DAILY PRN constipation 02/10/25
(Colace)
metoprolol succinate 50 mg 50 mg PO DAILY 02/10/25
tablet,extended release 24 hr
oxycodone-acetaminophen 5 mg-325 1 tab PO .SEE BELOW PRN mild 02/10/25
mg tablet (Percocet) pain
Vital Signs / Lab Results
Temp Pulse Resp BP Pulse Ox
98.8 F 82 18 127/73 97
02/11/25 03:59 02/11/25 03:00 02/11/25 03:59 02/11/25 03:00 02/10/25 23:30
02/11/25 03:55
02/11/25 03:55
Assessment / Plan
PE: Resting in bed. Did not participate in history or exam due to baseline dementia. Focused exam of the left knee reveals site of aspiration with bandaid. Still a mild-moderate effusion. No erythema. Mild warmrth. ROM actively 0-85. Calf soft,
nontender. DNVI LLE
Lab:
Left knee fluid GS with no organisms
Cx pending
Blood Cx pending
Xrays:
Mild-moderate Left knee OA. No acute findings
Impression: Left knee OA with effusion, r/o lime knee infection
Plan: Discussed with the patient's son, Vinayak, bedside. Will also discuss with , Roselyn, whom I know as a patient for a number of years. Obviously with ongoing low back symptoms and under the care of Dr. Lange. His left knee was aspirated
yesterday of 65cc, apparent hemarthrosis, but sent for analysis. At present, No organisms on GS, Cx pending, but 53,740 WBC with 97.2 PMNs. No crystals or CPPD. He is being monitored on telemetry for his A-fib, cards recommends holding Eliquis given
hemarthrosis. Blood Cx also pending. He is Afeb. VSS. WBC 14.2. Will request ESR/CRP. He does not have a history of gout, CPPD, RA. With a synovial fluid WBC of 53,740 with 97% PMNs, there would obviously be a level of concern for lime knee
infection/septic OA. Although trauma can increase these numbers, over 50K would be less likely, although not impossible. Fortunately we are able to trend Cx data, and to my knowledge, he was not on ABX at the time of aspiration. Will trend fever
curve, WBC, follow Cx data closely, check ESR/CRP, and monitor him clinically. If warranted, he may require an arthroscopic wash-out of his knee. Will make him NPO this AM in case, for later potential. Discussed with Dr. Turcios. Will follow
closely.
--- NOTE | 2025-02-11 06:36 | W.PN.UPDATE ---
Update Note
Progress Note Update
Overnight patient restless, pulling covers off. Percocet x1, Valium IV x1. here. Tremors and restless legs. Lactic <2, BC x2 pending, Urine cx pending. Rectal temp 100.4.�Creatinine trending down and CO2 trending up.
--- NOTE | 2025-02-11 06:59 | PTCARENOTE ---
Pt continues with intermittent restlessness, pt reaching out as if hallucinating. Pt appears to be startled from sleep at times due to abrupt body tremor/ restless legs. Pt unable to rest comfortably. IVF and Cardizem gtt remains infusing as
ordered. went home, son now at bedside. Will monitor.
--- NOTE | 2025-02-11 08:24 | VNURNOTE ---
Chart reviewed. Patient is current with [facility]. Will continue to follow hospital course and DC plans.
--- NOTE | 2025-02-11 08:43 | W.PN.HOSP.TC ---
Addendum entered and electronically signed by Laz Turcios DO 02/11/25 14:59:
Yes, Hemarthrosis is related to trauma & exacerbated by Eliquis.
Original Note:
Today's Communication/Plan
-
PT/OT
Hold Eliquis
Orthopedics input
Bicarbonate drip
Await cultures
COVID antigen
Assessment / Plan
Assessment / Plan
Gen-awake but not alert, NAD
HEENT-NC, AT, anicteric, clear oral mm
Neck-supple
CV-reg, no M, +S1/S2
Lungs-clear B/L
Abd-soft, NT, ND
Ext-no edema
Musculoskeletal-no cyanosis, clubbing, passive range of motion of left knee without significant pain
Skin-warm and dry
Neuro-grossly non-focal
Psych-calm, cooperative
Persistent atrial fibrillation -with RVR on presentation. Now rate controlled on IV Cardizem and oral metoprolol. Wean Cardizem to off. Cardiology following.
TSH 2.8.
High risk for stroke given [id number] score of 7.
Eliquis administered last night but now on hold per orthopedics request given suspected hemarthrosis.
MISTY on CKD 3B -creatinine improving, 2.3 today. Suspect due to volume depletion. IV fluids, recheck labs in the morning.
Urinalysis noted, specific gravity 1.025.
Hyperkalemia -improved.
Elevated anion gap metabolic acidosis -bicarbonate improving on IV bicarbonate infusion. Continue.
Progressive gait dysfunction -worsening over the past few weeks. Will consult orthopedics for opinion on whether it is related to his known spinal disease.
Previous CT of the lumbar spine done in October showed multilevel degenerative disc disease. Greatest and severe at L2/L3. Grade 1 anterolisthesis of L5 on S1.
Previous lumbar spine MRI June 2023 showed very severe discogenic degenerative disease, very severe central canal stenosis, severe left neural foraminal narrowing at L4/L5.
PT/OT.
Left knee trauma -fell 2 days ago. Sustained injury with hemarthrosis noted on arthrocentesis in ED.
Orthopedics input noted, may need washout. Made n.p.o. this morning.
Synovial fluid WBC count 53,740. Suspect hemarthrosis related although cannot rule out septic arthritis. Synovial fluid culture negative so far, no organisms seen on Gram stain, moderate WBCs.
Did present with leukocytosis, now improving. Afebrile on arrival but did have a temp of 100.4 �F last evening.
Blood cultures pending. Check COVID antigen.
No significant pyuria on urinalysis. Doubt UTI.
Acute anemia -macrocytic. Hemoglobin 11.8 on arrival, previous hemoglobins in 14 range. Hemoglobin down to 9.9 this morning. Monitor closely.
Possible acute blood loss anemia from hemarthrosis, although I would expect his knee exam to be significantly worse given degree of anemia.
Other explanation for acute anemia could be hemodilution from IV fluid administration as he is on a sodium bicarbonate drip.
Eliquis now on hold.
No evidence of iron deficiency on blood work. B12 and folic acid levels adequate.
Chronic heart failure midrange EF -stable. Not on chronic diuretics. BNP elevated at 13,000 without signs or symptoms of active heart failure.
Chest x-ray (1-view) shows no acute disease. Stable mild cardiomegaly.
Hyperlipidemia -atorvastatin.
Frontotemporal dementia
RLS
History of left atrial thrombus
History of bilateral DVT
History of prostate cancer
History of expressive aphasia
SHAISTA
Full code - to bring in living will, she believes he might be DNR. Wants to keep full code for now.
Updated son at the bedside. He is eager to take father home as soon as possible.
Anticipated Discharge: 24 - 48 hours
Subjective/Interval History
-
Date of Service: February 11, 2025
Patient seen and examined, no complaints.
Objective Data
-
Labs:
Laboratory Results
02/11/25
03:55
WBC 14.2 H
Hgb 9.9 L
Hct 29.6 L
Plt Count 246
Sodium 137
Potassium 4.2
Chloride 109 H
Carbon Dioxide 18 L
BUN 43 H
Creatinine 2.3 H
Glucose 119 H
Calcium 8.2 L
Total Bilirubin 1.1
AST 31
ALT 11
Alkaline Phosphatase 61
Vital Signs:
Vital Signs
Temp Pulse Resp BP Pulse Ox
98.8 F 75 18 106/82 97
02/11/25 03:59 02/11/25 06:30 02/11/25 03:59 02/11/25 06:00 02/10/25 23:30
I&O
02/10/25 02/11/25 02/12/25
06:59 06:59 06:59
Intake Total 1080 / 1080
Output Total 400 / 400
Balance 680 / 680
Review of Systems
-
Unable to obtain full review of systems at this time due to: Dementia
History Source: Patient and Family
All other systems: Reviewed and negative
[2025-02-11] MEDS: ELIQUIS PO (08:49)
[2025-02-11] MEDS: TOPROL XL 50 MG PO (08:50)
[2025-02-11] MEDS: FARXIGA PO (08:50)
[2025-02-11] MEDS: LIPITOR 20 MG PO (08:51)
[2025-02-11] MEDS: LEXAPRO 5 MG PO (08:51)
[2025-02-11] MEDS: SODIUM BICARBONATE 1150 MEQ IV ×2 (09:45)
--- NOTE | 2025-02-11 10:48 | CM ---
Chart reviewed. Patient is independent of ADLS also assists, lives with his in a [address], [address], stairglide, has recently been ambulating with a RW and also has a SPC at home. Patient is current with Palliative Care. Offered VN,
patient's son would like to speak with his mother first. PT evaluation recommending HH with Home PT. CM to follow
[2025-02-11 11:13] LABS: COVID-19 Antigen Negative (Negative)
--- NOTE | 2025-02-11 11:14 | PTCARENOTE ---
Pt ambulated in [place] with PT/OT and RW, bee well, denied SOB, denied any pain while walking.
--- NOTE | 2025-02-11 11:51 | W.PN.CD ---
Today's Communication / Plan
-
IV dilt while NPO
Impression / Plan
-
84-year-old gentleman with history of persistent atrial fibrillation, mild coronary artery disease with PCI to LAD 2008, mildly reduced LVEF, severe dementia, CKD 3B with mild worsening, hyperkalemia, anion gap metabolic acidosis, status post fall
with left knee hemarthrosis status post arthrocentesis with 75 cc of hemorrhagic fluid.
Card: Khadijah Torres MD, EP: Madi Penaloza MD at [facility].
Atrial fibrillation, persistent
- Rate: Better on IV Dilt, typically on metoprolol ER 50 mg a day
- Rhythm: Persistent, had ELIAS/DCCV 01/29/2024, not sure there are any plans for sinus, this may turn into permanent AFib
- Anticoagulation: Usually on Eliquis, on hold with the acute hemarthrosis
HFrEF. LVEF 40%
- Appears euvolemic at this time.
- With worsening CKD and metabolic acidosis, acceptable to start bicarb drip -management as per primary team.
- Watch for any fluid overload.
- At cath 03/05/2024 he was compensated with an LVEDP of 12
- Meds limited by CKD per Dr. Cm's note
CAD, prior coronary stent, no obstructive CAD at cath 03/05/2024, LVEDP was 12
Hemarthrosis
- Traumatic in nature
- Status post arthrocentesis
- Treatment as per primary and orthopedics
Acute anemia, Hgb 14.7 on 10/12/2024 and now 9.9
CKD 3b =>4
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
Subjective: Appears comfortable
Physical Exam
Vital Signs/Labs
Vital Signs
Temp Pulse Resp BP Pulse Ox
98.7 F 75 14 114/60 96
02/11/25 08:35 02/11/25 06:30 02/11/25 08:35 02/11/25 08:50 02/11/25 08:35
02/10/25 02/11/25 02/12/25
06:59 06:59 06:59
Actual Weight 100.7 kg
02/11/25 03:55
02/11/25 03:55
TSH 2.89 uIU/ml (0.47-4.68) 02/10/25 09:29
02/10/25
09:29
Nuf-O-Ioeegfdlffc Pept [id number]
Physical Exam
Constitutional: No acute distress
EENT: Anicteric
Cardiovascular: Rhythm/rate is irregular and S1S2 is normal
Respiratory: Respiratory effort normal and Lungs clear to auscul.
GI: Soft and Distention absent
Neuro/Psych: Alert
Data Reviewed
-
Date of Service: February 11, 2025
[2025-02-11 13:00] LABS: C-Reactive Protein > 270.00 mg/L (0.0-10.00)
[2025-02-11] MEDS: CARDIZEM 125 IV ×2 (13:23→22:23)
[2025-02-11] MEDS: WELLBUTRIN XL (24 hour extended release) 300 MG PO (14:11)
[2025-02-11] MEDS: VITAMIN D3 (cholecalciferol) 50 MCG PO (14:11)
--- NOTE | 2025-02-11 14:46 | PN.CDI ---
CDI
- -
CDI:
Physician Documentation Request
Admit Date: 02/10/25 12:48
Dear Doctor,
Please review the following and provide your response in the progress notes.
Clinical Indicators:
Pt admitted for Persistent atrial fibrillation -with RVR on presentation and Left knee trauma -fell 2 days ago. Sustained injury with hemarthrosis
02/11 PN: ' Eliquis administered last night but now on hold per orthopedics request given suspected hemarthrosis... Hemoglobin 11.8 on arrival, previous hemoglobins in 14 range. Hemoglobin down to 9.9 this morning.'
Please clarify the relationship between these conditions:
Yes, Hemarthrosis is related to/associated with/exacerbated by Eliquis.
No, Hemarthrosis is not related to/associated with/exacerbated by Eliquis.
Unable to determine
Other
Use of terms such as suspected, likely, concern for, or probable (associated with a specific diagnosis that is being evaluated, monitored, or treated as if it exists) are acceptable and can be coded in the inpatient setting, when documented at the
time of discharge.
Thank you,
Fany Hadley RN, BSN
CDI Specialist
[facility]
Please use your independent medical judgment in providing your response.
[2025-02-11] MEDS: TYLENOL 650 MG PO (17:51)
--- NOTE | 2025-02-11 19:12 | PTCARENOTE ---
Med with Tylenol 650 mg for general body aches with relief noted.
[2025-02-11] MEDS: VALIUM INJECTION 2 MG IV (21:02)
--- NOTE | 2025-02-11 21:05 | PTCARENOTE ---
Assumed care of patient at change of shift. Oriented to self, VSS, Afib on tele, 96% on room air. Patient pulled out right forearm IV, family in room and requesting IV Valium for 'restlessness'. Patient received 2mg previous night. House
Provider notified and 2mg Valium IV ordered and administered (See Mar). Bed Alarm placed under patient, plan of care discussed with patient and family, call reyes within reach.
[2025-02-12] MEDS: SODIUM BICARBONATE 1150 MEQ IV (00:14)
[2025-02-12] MEDS: TYLENOL 650 MG PO (01:31)
[2025-02-12 02:13] VITALS: BP 135/69
[2025-02-12 03:32] LABS: Hematocrit 29.0 % (39.0-52.0); Hemoglobin 9.6 g/dL (13.0-18.0); Mean Corp Hgb Conc. 33.1 g/dL (33.0-37.0); Mean Corpuscular Volume 99.0 fL (80.0-94.0); Nucleated Red Blood Cells % 0 % (-); Platelet Count 246 10^3/uL (130-400); Red Cell Dist. Width 13.3 % (11.5-14.5)
[2025-02-12] MEDS: DESYREL 25 MG PO (03:33)
--- NOTE | 2025-02-12 03:42 | PTCARENOTE ---
Pt has been agitated and restless, pulling at lines and sheets and scd's on legs - becoming more agitated and unable to rest comfortably. He has an intermittent audible inspiratory wheeze, lungs clear bilaterally, 95% on room air. HR has been
80-100, BP 135/69. is requesting for a practitioner to come see patient and discuss options for medications that will help him settle. House Provider notified and came to see patient and speak with spouse. A 1x dose of 25mg PO Desyrel
ordered and given (See Mar).
--- NOTE | 2025-02-12 03:45 | PTCARENOTE ---
Patient voided 150 via male purewick. Bladder scanned for 192 ml's. House provider aware.
[2025-02-12 03:55] LABS: ALT (SGPT) 12 U/L (0-50); AST (SGOT) 37 U/L (17-59); Albumin 3.1 g/dl (3.5-5.0); Alkaline Phosphatase 62 U/L (38-126); Blood Urea Nitrogen 48 mg/dl (9-20); Calcium 8.4 mg/dl (8.4-10.2); Carbon Dioxide 27 mmol/L (22-30); Chloride 105 mmol/L (98-107); Estimated Creatinine Clearance 31 ml/min; Glucose 137 mg/dl (70-99); Potassium 4.3 mmol/L (3.5-5.1); Sodium 136 mmol/L (135-145); Total Protein 5.6 g/dl (6.3-8.2); eGFR 30.66
--- NOTE | 2025-02-12 04:43 | W.PN.UPDATE ---
Update Note
Progress Note Update
Spoke at length with overnight about her concerns and she is in agreement for him to be seen by psychiatry service due to increased anxiety, agitation likely exacerbated by illness and new environment. Valium IV given past 2 nights not
effective. He also has hx restless leg syndrome impeding his ability to sleep especially with SCDs. Trazadone 25 mg po x1 given (he has taken in past).
[2025-02-12 05:21] VITALS: BMI 28.8
[2025-02-12 06:51] VITALS: BP 133/79
[2025-02-12] MEDS: TOPROL XL 50 MG PO (07:49)
[2025-02-12] MEDS: WELLBUTRIN XL (24 hour extended release) 300 MG PO (07:49)
[2025-02-12] MEDS: LIPITOR 20 MG PO (07:49)
[2025-02-12] MEDS: VITAMIN D3 (cholecalciferol) 50 MCG PO (07:50)
[2025-02-12] MEDS: LEXAPRO 5 MG PO (07:50)
[2025-02-12] MEDS: FARXIGA 10 MG PO (07:50)
--- NOTE | 2025-02-12 08:26 | W.PN.HOSP.TC ---
Today's Communication/Plan
-
Discharge
Assessment / Plan
Assessment / Plan
Gen-awake but not alert, NAD
HEENT-NC, AT, anicteric, clear oral mm
Neck-supple
CV-reg, no M, +S1/S2
Lungs-clear B/L
Abd-soft, NT, ND
Ext-no edema
Musculoskeletal-no cyanosis, clubbing, passive range of motion of left knee without significant pain
Skin-warm and dry
Neuro-grossly non-focal
Psych-calm, cooperative
Persistent atrial fibrillation -with RVR on presentation. Now rate controlled, continue metoprolol. Stop IV Cardizem (unclear why it was not shut off despite the order from yesterday).
TSH 2.8.
High risk for stroke given [id number] score of 7.
Resume Eliquis as no plans for orthopedic procedures.
MISTY on CKD 3B -creatinine improving, 2.1 today. Suspect due to volume depletion. Discontinue further IV fluids.
Urinalysis noted, specific gravity 1.025.
Hyperkalemia -improved.
Elevated anion gap metabolic acidosis -acidosis resolved. Stop IV fluids.
Progressive gait dysfunction -worsening over the past few weeks. Will consult orthopedics for opinion on whether it is related to his known spinal disease.
Previous CT of the lumbar spine done in October showed multilevel degenerative disc disease. Greatest and severe at L2/L3. Grade 1 anterolisthesis of L5 on S1.
Previous lumbar spine MRI June 2023 showed very severe discogenic degenerative disease, very severe central canal stenosis, severe left neural foraminal narrowing at L4/L5.
Seen by PT and OT and recommendation for home health.
Left knee trauma -fell 2 days prior to admission. Sustained injury with hemarthrosis noted on arthrocentesis in ED.
Orthopedics input noted, may need washout. Made n.p.o. this morning.
Synovial fluid WBC count 53,740. Suspect hemarthrosis, doubt septic arthritis clinically given clinical improvement without antibiotics. Synovial fluid culture negative so far, no organisms seen on Gram stain, moderate WBCs.
Did present with leukocytosis, now improving. One-time low-grade fever noted, afebrile since. No signs or symptoms of sepsis.
Blood cultures negative so far. COVID-negative.
No significant pyuria on urinalysis. Doubt UTI.
Acute anemia -macrocytic. Hemoglobin 11.8 on arrival, previous hemoglobins in 14 range. Hemoglobin down to 9.6 this morning. Monitor closely.
Possible acute blood loss anemia from hemarthrosis, although I would expect his knee exam to be significantly worse given degree of anemia.
Other explanation for acute anemia could be hemodilution from IV fluid administration as he is on a sodium bicarbonate drip.
No evidence of iron deficiency on blood work. B12 and folic acid levels adequate.
Chronic heart failure midrange EF -stable. Not on chronic diuretics. BNP elevated at 13,000 without signs or symptoms of active heart failure.
Chest x-ray (1-view) shows no acute disease. Stable mild cardiomegaly.
Hyperlipidemia -atorvastatin.
Frontotemporal dementia -family wants to resume home palliative care. Periods of agitation in the hospital noted. Psychiatry consult noted but family states that they will not wait for psychiatry and prefer to discharge today.
RLS
History of left atrial thrombus
History of bilateral DVT -okay to resume Eliquis.
History of prostate cancer
History of expressive aphasia
SHAISTA
Full code
Dispo -medically stable for discharge.
Updated son and at the bedside. Family requesting that he gets discharged today. Plan to resume palliative care on discharge.
35-minute spent in discharge process.
Anticipated Discharge: Today
Subjective/Interval History
-
Date of Service: February 12, 2025
Patient seen and examined. He is a very limited historian due to underlying cognitive impairment. No complaints.
Objective Data
-
Labs:
Laboratory Results
02/12/25
03:22
WBC 12.3 H
Hgb 9.6 L
Hct 29.0 L
Plt Count 246
Sodium 136
Potassium 4.3
Chloride 105
Carbon Dioxide 27
BUN 48 H
Creatinine 2.1 H
Glucose 137 H
Calcium 8.4
Total Bilirubin 1.2
AST 37
ALT 12
Alkaline Phosphatase 62
Vital Signs:
Vital Signs
Temp Pulse Resp BP Pulse Ox
98.3 F 103 18 133/79 92
02/12/25 06:48 02/12/25 07:30 02/12/25 06:48 02/12/25 06:51 02/12/25 06:48
I&O
02/11/25 02/12/25 02/13/25
06:59 06:59 06:59
Intake Total 1080 / 1080 1180 / 1180
Output Total 400 / 400 600 / 600
Balance 680 / 680 580 / 580
Review of Systems
-
Unable to obtain full review of systems at this time due to: Dementia
--- NOTE | 2025-02-12 08:39 | W.DS.TRANS ---
DC Summary - [place]
-
Discharge Instructions:
Discharge Diagnosis/Procedures Ambulatory dysfunction, right knee hemarthrosis,
rapid atrial fibrillation
Diet 2 Gram Sodium
Activity With assistance,As tolerated
Driving Restrictions No driving
Bathing Restrictions None
Instructions:
Stand-Alone Forms:
Changes to Home Medications: No
Discharge Medications:
DC Medications w/original date entered in [facility]
apixaban 2.5 mg tablet (Eliquis) 2.5 mg PO BID 03/31/23
dapagliflozin propanediol 10 mg tablet (Farxiga) 10 mg PO DAILY 03/31/23
atorvastatin 20 mg tablet 20 mg PO HS 01/23/24
coenzyme Q10 30 mg capsule 30 mg PO DAILY 01/23/24
multivitamin 1 tab PO DAILY 01/26/24
ascorbic acid (vitamin C) 1,000 mg tablet (Vitamin C) 1,000 mg PO DAILY 03/04/24
calcium 500 mg (carb,gluconate)-magnesium 250 mg (gluc,oxide) tablet (Calcium Magnesium) 4 tab PO DAILY 03/04/24
cholecalciferol (vitamin D3) 50 mcg (2,000 unit) tablet (Vitamin D3) 50 mcg PO DAILY 03/04/24
escitalopram oxalate 10 mg tablet 10 mg PO HS 03/04/24
turmeric 400 mg capsule 400 mg PO DAILY 03/04/24
vitamin B complex 1 tab PO DAILY 03/04/24
zinc 100 mg tablet 100 mg PO DAILY 03/04/24
acetaminophen 500 mg tablet (Tylenol Extra Strength) 1,000 mg PO Q8HPRN PRN mild pain 02/10/25
acetaminophen 650 mg tablet,extended release (Tylenol Arthritis Pain) 1,300 mg PO HSPRN PRN mild pain 02/10/25
bupropion HCl 150 mg 24 hr tablet, extended release 300 mg PO DAILY 02/10/25
docusate sodium 100 mg capsule (Colace) 100 mg PO DAILY PRN constipation 02/10/25
metoprolol succinate 50 mg tablet,extended release 24 hr 50 mg PO DAILY 02/10/25
Home Medication Changes
Pending Results: No
== END 2025-02-12 09:40 | disposition home or self-care (01) | DRG 554 ==
LOC: IVU 12:48
PROVIDERS: Physician Assistant Surgical; Registered Nurse; ADMITTING PHYSICIAN Hospitalist; CONSULT PHYSICIAN Internal Medicine Cardiovascular Disease; CONSULT PHYSICIAN Orthopaedic Surgery; EMERGENCY PHYSICIAN Emergency Medicine; FAMILY PHYSICIAN Family Medicine
PROC: 0S9D3ZZ Drainage of Left Knee Joint, Percutaneous Approach (ICD-10-PCS; 2025-02-10)
DX: M25.062 Hemarthrosis, left knee (principal); I48.19 Other persistent atrial fibrillation; E87.20 Acidosis, unspecified; N17.9 Acute kidney failure, unspecified; I13.0 Hypertensive heart and chronic kidney disease with heart failure and stage 1 through stage 4 chronic kidney disease, or unspecified chronic kidney disease; I50.22 Chronic systolic (congestive) heart failure; D62 Acute posthemorrhagic anemia; D68.32 Hemorrhagic disorder due to extrinsic circulating anticoagulants; N18.32 Chronic kidney disease, stage 3b; Z51.5 Encounter for palliative care; Z79.01 Long term (current) use of anticoagulants; E87.5 Hyperkalemia; G25.81 Restless legs syndrome; Z66 Do not resuscitate; Z11.52 Encounter for screening for COVID-19; E11.22 Type 2 diabetes mellitus with diabetic chronic kidney disease; F17.290 Nicotine dependence, other tobacco product, uncomplicated; Z79.899 Other long term (current) drug therapy
CPT/HCPCS: 20610; 71045; 73564; 80053; 81003; 81015; 82607; 82728; 82746; 83540; 83550; 83605; 83880; 84443; 85025; 85045; 85652; 86140; 87015; 87040; 87070; 87086; 87205; 87811; 89051; 89060; 93005; 96361; 96365; 96366; 97163; 97167; 99285